=== PATIENT | female | born 1930 | race Caucasian/White ===

== ENCOUNTER 2018-12-06 14:33 | Inpatient (IN) ==
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
[2018-12-06 15:21] LABS: Bilirubin,Urine Negative (Negative); Blood,Urine Negative (Negative); Clarity,Urine Clear (Clear); Color,Urine Yellow (Yellow); Glucose,Urine (UA) Normal (Normal); Ketones,Urine Negative (Negative); Leukocyte Esterase,Urine Trace (Negative); Nitrite,Urine Negative (Negative); Protein,Urine Trace mg/dL (Neg-Trace); Specific Gravity,Urine 1.012 (1.010-1.025); Urobilinogen,Urine Normal (Normal)
[2018-12-06 15:23] LABS: Bacteria,Urine None Seen per hpf (None-Few); Hyaline Casts,Urine None Seen per lpf (None-Few); Squamous Epithelial Cell,Urine Many per lpf (None-Few); WBC,Urine 0-3 per hpf (0-3)
[2018-12-06 15:38] LABS: Basophils # 0.1 K/mcL (0.0-0.2); Basophils % 0.6 %; Eosinophils # 0.1 K/mcL (0.0-0.6); Eosinophils % 1.6 %; Hematocrit 35.6 % (35.3-44.9); Hemoglobin 11.5 g/dL (11.5-15.4); Immature Granulocytes % 0.4 % (0-4); Lymphocytes # 1.3 K/mcL (0.6-4.6); Mean Corpuscular HGB Conc 32.3 g/dL (31.6-35.5); Mean Corpuscular Hemoglobin 28.7 pg (28.0-33.3); Mean Corpuscular Volume 88.8 fL (83.0-100.0); Mean Platelet Volume 11.4 fL (9.4-12.4); Monocytes % 11.7 %; Neutrophils # 5.7 K/mcL (1.6-8.9); Platelet Count 148 K/mcL (140-400); Red Blood Count 4.01 M/mcL (3.82-4.97); Red Cell Distribution Width 15.1 % (11.5-14.5); Segmented Neutrophils % 69.7 %; White Blood Count 8.2 K/mcL (4.3-11.1)
[2018-12-06] MEDS ORDERED: Ipratropium/Albuterol Neb 3 ML IH ONE (15:50)
[2018-12-06] MEDS ORDERED: methylPREDNISolone 125 MG/2 ML VIAL IVP ONE (15:50)
[2018-12-06 16:06] LABS: VBG HCO3 24 mEq/L (21-27); VBG PCO2 33 mmHg (41-51); VBG PH 7.46 pH Units (7.32-7.42); VBG PO2 71 mmHg (25-50)
[2018-12-06 16:13] LABS: Albumin 3.6 g/dL (3.5-5.7); Bilirubin,Direct 0.2 mg/dL (0.0-0.2); Bilirubin,Indirect 0.4 mg/dL (0.0-1.2); Bilirubin,Total 0.6 mg/dL (0.3-1.0); Globulin 3.6 g/dL (2.4-3.5); Potassium 4.4 mEq/L (3.5-5.1); Total Protein 7.2 g/dL (6.4-8.9); Troponin I 0.03 ng/mL (< 0.04)
[2018-12-06] MEDS ORDERED: Azithromycin 500 MG in D5% in Water 250 ML IVPB ONE (16:40)
[2018-12-06] MEDS ORDERED: cefTRIAXone 1,000 MG in Water for inj. (sterile) 20 ML 10 ML IVP ONE (16:40)
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
[2018-12-06] MEDS ORDERED: Naloxone 0.4 MG/ML INJ IVP PRN (17:35)
[2018-12-06] MEDS ORDERED: Acetaminophen 325 MG TABLET PO PRN (17:35)
[2018-12-06] MEDS ORDERED: HydrOXYzine 100 MG/2 ML VIAL IM PRN (17:38)
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
[2018-12-06] MEDS ORDERED: Albuterol 2.5 MG/3 ML NEBULIZER IH PRN (18:20)
[2018-12-06] MEDS ORDERED: Dextrose Gel 15 GM/37.5 ML TUBE PO PRN ×2 (18:26)
[2018-12-06] MEDS ORDERED: D5% in Water 1,000 ML IVC PRN (18:26)
[2018-12-06] MEDS ORDERED: *HR* Dextrose 50 % in Water (Syg) 50 ML SYRINGE IVP PRN (18:26)
[2018-12-06] MEDS: Ipratropium/Albuterol Neb 3 ML IH SCH ×2 (20:12→23:15)
[2018-12-06] MEDS: Ondansetron ODT 4 MG TAB.RAPDIS SL SCH (22:02)
[2018-12-06] MEDS: Divalproex Sodium 125 MG CAPSULE PO SCH (22:23)
[2018-12-06] MEDS: *HR* OxyCODONE Immed Rel 5 MG TABLET PO SCH (22:25)
[2018-12-06] MEDS: hydrOXYzine pamoate 25 MG CAPSULE PO SCH (22:25)
[2018-12-06] MEDS: hydrALAZINE 10 MG TABLET PO SCH (22:25)
[2018-12-06] MEDS: Insulin LISPRO 300 UNITS/3 ML VIAL SQ SCH (22:30)
[2018-12-07] MEDS: Ondansetron ODT 4 MG TAB.RAPDIS SL SCH ×4 (00:14→18:32)
[2018-12-07] MEDS: Ipratropium/Albuterol Neb 3 ML IH SCH ×5 (04:08→19:44)
[2018-12-07] MEDS: *HR* Heparin 5,000 UNIT/ML VIAL SQ SCH ×2 (06:11→18:31)
[2018-12-07 06:55] LABS: Basophils % 0.4 %; Hematocrit 32.2 % (35.3-44.9); Hemoglobin 10.3 g/dL (11.5-15.4); Immature Granulocytes % 0.4 % (0-4); Lymphocytes # 0.7 K/mcL (0.6-4.6); Lymphocytes % 13.6 %; Mean Corpuscular Volume 87.5 fL (83.0-100.0); Mean Platelet Volume 11.1 fL (9.4-12.4); Monocytes # 0.1 K/mcL (0.0-1.3); Monocytes % 2.5 %; Platelet Count 145 K/mcL (140-400); Red Blood Count 3.68 M/mcL (3.82-4.97); Red Cell Distribution Width 15.2 % (11.5-14.5); Segmented Neutrophils % 83.1 %; White Blood Count 4.8 K/mcL (4.3-11.1)
[2018-12-07 07:13] LABS: Calcium 8.6 mg/dL (8.6-10.3); Potassium 4.2 mEq/L (3.5-5.1)
[2018-12-07] MEDS ORDERED: Azithromycin 500 MG in D5% in Water 250 ML IVPB SCH (09:00)
[2018-12-07] MEDS: Insulin LISPRO 300 UNITS/3 ML VIAL SQ SCH ×4 (09:02→22:34)
[2018-12-07] MEDS: hydrALAZINE 10 MG TABLET PO SCH ×2 (09:05→22:34)
[2018-12-07] MEDS: *HR* LORazepam 0.5 MG TABLET PO SCH (09:18)
[2018-12-07] MEDS: Cholecalciferol (D-3) 1,000 UNIT TABLET PO SCH (09:18)
[2018-12-07] MEDS: predniSONE 20 MG TABLET PO SCH (09:18)
[2018-12-07] MEDS: NIFEdipine XL (24 HR) 30 MG TAB.ER.24 PO SCH (09:18)
[2018-12-07] MEDS: hydrOXYzine pamoate 25 MG CAPSULE PO SCH ×2 (09:19→22:36)
[2018-12-07] MEDS: Aspirin Enteric Coated 81 MG Tablet PO SCH (09:19)
[2018-12-07] MEDS: cefTRIAXone 1,000 MG in Water for inj. (sterile) 20 ML 10 ML IVP SCH (09:19)
[2018-12-07] MEDS: Torsemide 20 MG TABLET PO SCH (09:19)
[2018-12-07] MEDS: *HR* OxyCODONE Immed Rel 5 MG TABLET PO SCH ×2 (09:20→22:35)
[2018-12-07] MEDS: Divalproex Sodium 125 MG CAPSULE PO SCH ×3 (09:22→22:36)
--- NOTE | 2018-12-07 13:22 | Internal Med Progress Note ---
Hospitalist Progress Note - Encounter Date of Encounter: 12/07/18 Time of Encounter: 08:20 - Subjective Interval History: patient was seen and examined at bedside. is Axox1 ( herself) not place or time. she denies fever, chils, N/v/D. is able to follow simple commands. would like to get out of bed. all questions answered. denies fever, chills, N/v/D. - Exam Vitals: Temp Pulse Resp BP Pulse Ox 97.4 F L 60 15 105/70 97 12/07/18 11:28 12/07/18 11:28 12/07/18 11:28 12/07/18 11:28 12/07/18 11:28 Exam: General: Patient is alert, no acute distress, oriented x 1 Head: atraumatic, normocephalic, ENT: Mucous membranes dry Eye: normal appearance, PERRL, no scleral icterus, no conjunctival injection Neck: normal inspection, trachea midline, full ROM, no carotid bruits Chest: normal inspection, symmetric chest rise Respiratory: Coarse breath sounds bilaterally; decreased breath sounds at bases bilat. no wheezing Cardiovascular: Regular rate and rhythm. s1 and s2 normal No clicks, rubs, gallops, or murmurs. No pedal edema Abdomen: Abdomen is soft, nontender. Bowel sounds are present Musculoskeletal: Spontaneously moving all extremities no edema Skin: warm, dry, intact. Neuro: Alert oriented x 1, speech is comprehendible, follows simple commands as she moves all extremities on command. sensation intact Psych: Patient's affect is normal - Assessment and Plan (1) Pneumonia Current Visit: Yes Status: Suspected Assessment and Plan: Chest x-ray shows possible left basal and right mid lung airspace opacities concerning for pneumonia/atelectasis. Patient denies any complaints. She does have dementia. procalcitonin pending continue IV abx urine antigens pending GRANITE INSTALLER consulted Follow culture results. urine antigens negative- azithromycin discontinued. Moderate risk for complications. (2) COPD exacerbation Current Visit: Yes Status: Acute Assessment and Plan: Patient presented with hypoxia per ED record and was reportedly having sats of 80% on arrival. Placed on nasal cannula. Started on she received Solu-Medrol in the ER. continue with burst of steroids for 5 days total Will continue steroids. Bronchodilators. (3) Acute on chronic diastolic CHF (congestive heart failure) Current Visit: Yes Status: Acute Assessment and Plan: CXR with vascular congestion. TTE ordered strict I/O continue torsemide and BB, ASA and statins. (4) Acute respiratory failure with hypoxia Current Visit: Yes Status: Acute Assessment and Plan: In the ER she was first noted to have sats of 80% on room air and was placed on oxygen and is presently on 3 L oxygen saturating at 97% continue with nasal cannula to keep sats >92% secondary to above management as above (5) Metabolic encephalopathy Current Visit: Yes Status: Acute Assessment and Plan: ?secondary to hypoxia on arrival, PNA, ruled out acute stroke Unknown baseline. Patient is oriented 1. Answering no to most questions however follows commands CT head: No acute intracranial abnormality. fall precautions, aspiration precaution Monitor vital signs. Monitor neuro status (6) CKD (chronic kidney disease) stage 4, GFR 15-29 ml/min Current Visit: Yes Status: Acute Assessment and Plan: CKD 4- creatinine currently at baseline as compared to labs in 2015 strict i/O will call family as her GFR is <15 now about her wishes for dialysis. renal US ordered will follow continue home medications ( on sodium bicarb) and watch renal functions. (7) Hypertension Current Visit: Yes Status: Chronic Assessment and Plan: Blood pressure is well controlled. Continue home medications (8) Dementia Current Visit: Yes Status: Suspected Assessment and Plan: Patient with history of dementia. Reported episodes of delirium at long term and agitation. Will monitor closely. Consider Haldol IM injection if patient develops episodes of agitation. (9) Counseling regarding goals of care Current Visit: Yes Status: Acute Assessment and Plan: tried to call emergency contact listed on file- [phone] hwoever the number is disconnected. nursing staff aware to try to find family for the patient in order to discuss goals of care. (10) DVT prophylaxis Current Visit: Yes Status: Acute Assessment and Plan: heparin sc - Time Spent with Patient Total time spent is greater than 50% in coordination of care (as documented) at patient's floor/unit and/or counseling patient: 25 - 35 minutes Plan of Care Discussed with: patient Internal Medicine: Result - Labs CBC & Chem 7: 12/07/18 06:17 12/07/18 06:17 Labs: Short CBC 12/06/18 12/07/18 Range/Units 15:26 06:17 WBC 8.2 4.8 (4.3-11.1) K/mcL Hgb 11.5 10.3 L (11.5-15.4) g/dL Hct 35.6 32.2 L (35.3-44.9) % Plt Count 148 145 (140-400) K/mcL Neutrophils # 5.7 4.0 (1.6-8.9) K/mcL BMP 12/06/18 12/07/18 15:26 06:17 Sodium 138 140 Potassium 4.4 4.2 Chloride 102 105 Carbon Dioxide 23 23 BUN 70 H 70 H Creatinine 4.26 H 4.07 H Glucose 116 H 146 H Calcium 9.0 8.6 Cardiac Enzymes 12/06/18 Range/Units 15:26 Troponin I 0.03 (< 0.04) ng/mL Liver Function 12/06/18 Range/Units 15:26 Total Bilirubin 0.6 (0.3-1.0) mg/dL Direct Bilirubin 0.2 (0.0-0.2) mg/dL AST 14 (13-39) Units/L ALT 7 (7-52) Units/L Alkaline Phosphatase 56 (34-104) Units/L Albumin 3.6 (3.5-5.7) g/dL Urine 12/06/18 Range/Units 15:09 Urine Color Yellow (Yellow) Urine Clarity Clear (Clear) Urine pH 6.0 (5.0-8.0) pH Units Ur Specific [place] 1.012 (1.010-1.025) Urine Protein Trace (Neg-Trace) mg/dL Urine Glucose (UA) Normal (Normal) mg/dL - Impressions Impressions Chest X-Ray 12/06/18 15:01 IMPRESSION: Small bilateral pleural effusions and patchy left basilar and right mid lung zone airspace opacities which may be on the basis of atelectasis and/or multifocal infectious/inflammatory infiltrates. Superimposed mild pulmonary vascular congestion. Mild degree of asymmetric pulmonary edema not excluded. Stable cardiomegaly. Stable prominence of mediastinum given differences in modality from prior CT chest 05/11/2015, and felt to correlate with thoracic aortic aneurysm and chronic dissection demonstrated on the prior remote CT chest. If there is clinical concern for acute aortic pathology, consider re-evaluation with CTA chest. D/ / 12/06/2018 16:11:53 Nathaniel Garcia MD / earnold Interpreting Provider: Nathaniel Garcia MD Head CT 12/06/18 15:03 IMPRESSION: No acute intracranial abnormality. D/ / Sven Duarte MD / Sven Duarte MD Interpreting Provider: Sven Duarte MD Consult Discharge Plan - Plan Referrals: NONE,PCP [Primary Care Provider] - (1) Pneumonia Qualifiers: Pneumonia type: due to unspecified organism Laterality: bilateral Lung lo cation: unspecified part of lung Qualified Code(s): J18.9 - Pneumonia, unspecified organism (7) Hypertension Qualifiers: Hypertension type: essential hypertension Qualified Code(s): I10 - Essential (primary) hypertension (8) Dementia Qualifiers: Dementia type: unspecified type Dementia behavioral disturbance: with behavioral disturbance Qualified Code(s): F03.91 - Unspecified dementia with behavioral disturbance
--- NOTE | 2018-12-07 16:42 | Electrocardiograph Report ---
[place] [id number] Test Date: 2018-12-06 Pat Name: Lida Walls Department: [id number] Room: 3A22 Gender: F Particle Board Supervisor: : [id number] Requested By: Marlen Jeronimo Order Number: [id number] Reading MD: Philipp Velasquez Measurements Intervals [place] Rate: 69 P: 32 NH: 163 QRS: -26 QRSD: 110 T: 113 QT: 446 QTc: 478 Interpretive Statements Sinus rhythm LVH with IVCD and secondary repol abnrm Electronically Signed On 12-07-2018 16:41:09 EDT by Philipp Velasquez
[2018-12-08] MEDS: Ipratropium/Albuterol Neb 3 ML IH SCH ×6 (00:10→23:18)
[2018-12-08] MEDS: Ondansetron ODT 4 MG TAB.RAPDIS SL SCH ×2 (00:39→05:59)
--- NOTE | 2018-12-08 03:12 | Event Note ---
Date of Encounter: 12/08/18 Time of Encounter: 00:22 Alerted by pts. nurse CLAIRE hO that the pt. was restless and taking her continuous pulse oximetry. 12.5 mg Benadryl IVP ordered to help calm the pt. Nurse instructed to continue monitoring the pt. closely. Alerted at 01:33 that the pt. had pulled out her IV access, was getting naked, and refused to wear her oxygen. Patient has been on 2-3 L all night and was admitted for altered mental status and hypoxia along with pneumonia. Patient would become aggressive with the nurse and slap her if she tried to place O2 on the patient. SpO2 was 80% at this time. Patient was agitated and aggressive w/nurse and myself and continued to refuse O2 w/SpO2 dropping further. I explained that if her SpO2 continued to drop she may require intubation to which she stated "no". Pt. is Full Code. D/t pts. age and current QT prolonging medications she had received this evening, decision made not to give Ativan or Haldol IM. Pt. refused anything oral. Decision made to restrain the pt. w/soft restraints on bilateral UEs for medical reasons d/t hypoxia and pts. disruption of medical treatment. Pt. was restrained and Oxymask placed on her. SpO2 increased to mid 90s. Sitter placed with patient. Nurse instructed to continue monitoring the pt. closely and alert me immediately of any adverse changes. Communication order placed to follow medical restraint protocol. Alerted by pts. nurse that the pt. continues to be agitated periodically. SpO2 90%. Will avoid sedating medications which will respiratorily depress the pt. further. Will continue to monitor pt., restraints, and respiratory status closely overnight.
[2018-12-08] MEDS: *HR* Heparin 5,000 UNIT/ML VIAL SQ SCH ×3 (05:59→21:23)
[2018-12-08 06:10] LABS: Calcium 8.5 mg/dL (8.6-10.3); Potassium 4.4 mEq/L (3.5-5.1)
--- NOTE | 2018-12-08 07:49 | Internal Med Progress Note ---
Hospitalist Progress Note - Encounter Date of Encounter: 12/08/18 Time of Encounter: 07:49 - Subjective Interval History: patient was seen ad examined ta bedside. unable to provide history as per nursing staff and documentation she was extremely combative overnight tried to call emergency contact listed on file- [phone] however the number is disconnected. called [facility] [phone]- and spoke to staff- gave me phone number for daughter [phone] Sharmaine Caldera as per nursing staff that her daughter does not visit her as she lives in [facility]. as per psych note from [place] - easily agitated with alot of activity, her behavior had worsened, was tearful, mood worse. depression and dementia with behavioral disturbance, Vistaril was added at that time without improvement. her ativan dose has been tapered in the past few months as [facility] is trying to decrease narcotic use. the nursing at the [place] reported that she has had this kind of behavior for a long time. - Exam Vitals: Temp Pulse Resp BP Pulse Ox 97.8 F 93 16 121/72 90 12/08/18 07:22 12/08/18 07:22 12/08/18 07:30 12/08/18 07:22 12/08/18 07:30 Exam: General: Patient is alert, no acute distress, oriented x 1 Head: atraumatic, normocephalic, ENT: Mucous membranes dry Eye: normal appearance, PERRL, no scleral icterus, no conjunctival injection Neck: normal inspection, trachea midline, full ROM, no carotid bruits Chest: normal inspection, symmetric chest rise Respiratory: Coarse breath sounds bilaterally; decreased breath sounds at bases bilat. no wheezing Cardiovascular: Regular rate and rhythm. s1 and s2 normal No clicks, rubs, gallops, or murmurs. No pedal edema Abdomen: Abdomen is soft, nontender. Bowel sounds are present Musculoskeletal: Spontaneously moving all extremities no edema Skin: warm, dry, intact. Neuro: Alert oriented x 1, speech is comprehendible, follows simple commands as she moves all extremities on command. sensation intact Psych: Patient's affect is normal - Assessment and Plan (1) Pneumonia Current Visit: Yes Status: Suspected Assessment and Plan: Chest x-ray shows possible left basal and right mid lung airspace opacities concerning for pneumonia/atelectasis. Patient denies any complaints. She does have dementia. procalcitonin pending continue IV abx urine antigens pending LIBRARY ATTENDANT consulted Follow culture results. urine antigens negative- azithromycin discontinued. Moderate risk for complications. (2) COPD exacerbation Current Visit: Yes Status: Acute Assessment and Plan: Patient presented with hypoxia per ED record and was reportedly having sats of 80% on arrival. Placed on nasal cannula with improvement of her saturation. Started on she received Solu-Medrol in the ER. continue with burst of steroids for 5 days total Bronchodilators. (3) Acute on chronic diastolic CHF (congestive heart failure) Current Visit: Yes Status: Acute Assessment and Plan: CXR with vascular congestion. TTE ordered strict I/O continue torsemide and BB, ASA and statins. (4) Acute respiratory failure with hypoxia Current Visit: Yes Status: Acute Assessment and Plan: In the ER she was first noted to have sats of 80% on room air and was placed on oxygen and is presently on 3 L oxygen saturating at 97% desaturated overnight and was agitated however not in any respiratory distress and is speaking/laying flat in bed without difficulty will get ABG continue oxygen via nasal cannula to keep sats >92% most likely secondary to above , management as above (5) Metabolic encephalopathy Current Visit: Yes Status: Acute Assessment and Plan: ?secondary to hypoxia on arrival, PNA, ruled out acute stroke Unknown baseline. Patient is oriented 1. Answering no to most questions however follows commands CT head: No acute intracranial abnormality. fall precautions, aspiration precaution Monitor vital signs. Monitor neuro status (6) CKD (chronic kidney disease) stage 4, GFR 15-29 ml/min Current Visit: Yes Status: Acute Assessment and Plan: CKD 4- creatinine currently at baseline as compared to labs in 2015 strict i/O will call family as her GFR is <15 now about her wishes for dialysis. renal US ordered will follow No hydronephrosis or shadowing renal pelvic stones. Overall increased echogenicity of the renal parenchyma, nonspecific finding suggesting medical renal disease. continue home medications ( on sodium bicarb) and watch renal functions. (7) Hypertension Current Visit: Yes Status: Chronic Assessment and Plan: Blood pressure is well controlled. Continue home medications (8) Dementia Current Visit: Yes Status: Suspected Assessment and Plan: Patient with history of dementia. Reported episodes of delirium at [facility] and agitation. on multiple medications and mood stabilizers. psych was consulted or medication reconciliation and recommendations Haldol 1 mg IM injection Q8H if patient develops episodes of agitation. (9) Counseling regarding goals of care Current Visit: Yes Status: Acute Assessment and Plan: tried to call emergency contact listed on file- [phone] however the number is disconnected. called [facility] [phone]- and spoke to staff- gave me phone number for daughter [phone] Sharmaine Caldera ( called left voicemail with call back number) as per nursing staff that her daughter does not visit her as she lives in [place]. as per psych note from [place] - easily agitated with alot of activity, her behavior had worsened, was tearful, mood worse. depression and dementia with behavioral disturbance, Vistaril was added at that time without improvement. her ativan dose has been tapered in the past few months as [facility] facility is trying to decrease narcotic use. nursing staff aware to try to find family for the patient in order to discuss goals of care. (10) Delirium Current Visit: Yes Status: Acute Assessment and Plan: continue with PRN haldol frequent redirection will follow psych recommendations. (11) DVT prophylaxis Current Visit: Yes Status: Acute Assessment and Plan: heparin sc - Time Spent with Patient Total time spent is greater than 50% in coordination of care (as documented) at patient's floor/unit and/or counseling patient: Internal Medicine: Result - Labs CBC & Chem 7: 12/07/18 06:17 12/08/18 05:35 Labs: BMP 12/08/18 05:35 Sodium 139 Potassium 4.4 Chloride 103 Carbon Dioxide 24 BUN 72 H Creatinine 4.39 H Glucose 111 H Calcium 8.5 L - Impressions Impressions Retroperitoneum Ultrasound 12/07/18 19:00 IMPRESSION: No hydronephrosis or shadowing renal pelvic stones. Overall increased echogenicity of the renal parenchyma, nonspecific finding suggesting medical renal disease. D/ / Pauline Coley Cha, MD / Pauline Coley Cha, MD Interpreting Provider: Pauline Coley Cha, MD Consult Discharge Plan - Plan Referrals: NONE,PCP [Primary Care Provider] - (1) Pneumonia Qualifiers: Pneumonia type: due to unspecified organism Laterality: bilateral Lung location: unspecified part of lung Qualified Code(s): J18.9 - Pneumonia, unspecified organism (7) Hypertension Qualifiers: Hypertension type: essential hypertension Qualified Code(s): I10 - Essential (primary) hypertension (8) Dementia Qualifiers: Dementia type: unspecified type Dementia behavioral disturbance: with behavioral disturbance Qualified Code(s): F03.91 - Unspecified dementia with behavioral disturbance
[2018-12-08] MEDS: Insulin LISPRO 300 UNITS/3 ML VIAL SQ SCH ×4 (08:22→19:31)
[2018-12-08] MEDS ORDERED: Haloperidol Lactate 5 MG/ML VIAL IM PRN (08:23)
[2018-12-08] MEDS ORDERED: MOM Conc 10 ML UD.LIQ PO PRN (08:45)
[2018-12-08] MEDS ORDERED: Mag Hydrox/Al Hydrox/Simeth 30 ML UDC PO PRN (08:45)
[2018-12-08 09:10] LABS: Estimated Average Glucose 114 mg/dl; Hemoglobin A1C 5.6 %
[2018-12-08] MEDS: *HR* LORazepam 0.5 MG TABLET PO SCH (09:38)
[2018-12-08] MEDS: NIFEdipine XL (24 HR) 30 MG TAB.ER.24 PO SCH (09:38)
[2018-12-08] MEDS: Torsemide 20 MG TABLET PO SCH (09:38)
[2018-12-08] MEDS: hydrALAZINE 10 MG TABLET PO SCH (09:38)
[2018-12-08] MEDS: Cholecalciferol (D-3) 1,000 UNIT TABLET PO SCH (09:39)
[2018-12-08] MEDS: Divalproex Sodium 125 MG CAPSULE PO SCH ×4 (09:39→21:23)
[2018-12-08] MEDS: Aspirin Enteric Coated 81 MG Tablet PO SCH (09:39)
[2018-12-08] MEDS: predniSONE 20 MG TABLET PO SCH (09:40)
[2018-12-08] MEDS: *HR* OxyCODONE Immed Rel 5 MG TABLET PO SCH ×2 (09:40→21:23)
[2018-12-08] MEDS: hydrOXYzine pamoate 25 MG CAPSULE PO SCH ×2 (09:40→21:24)
[2018-12-08] MEDS: cefTRIAXone 1,000 MG in Water for inj. (sterile) 20 ML 10 ML IVP SCH (09:41)
[2018-12-08] MEDS ORDERED: Ipratropium/Albuterol Neb 3 ML IH PRN (10:04)
[2018-12-08] MEDS ORDERED: CefTRIAXone 1,000 MG VIAL IM ONE (10:25)
[2018-12-08 15:15] LABS: ABG Base Excess 2 mEq/L (-2 to 3); ABG HCO3 26 mEq/L (21-27); ABG Oxygen Saturation 86 % (95-98); ABG PCO2 36 mmHg (35-45); ABG PH 7.46 pH Units (7.32-7.45); ABG PO2 48 mmHg (85-104); ABG TCO2 27 mEq/L (20-26)
[2018-12-08 15:21] LABS: ABG Base Excess 1 mEq/L (-2 to 3); ABG HCO3 25 mEq/L (21-27); ABG Oxygen Saturation 88 % (95-98); ABG PCO2 37 mmHg (35-45); ABG PH 7.44 pH Units (7.32-7.45); ABG PO2 52 mmHg (85-104); ABG TCO2 26 mEq/L (20-26)
[2018-12-08] MEDS ORDERED: Furosemide 20 MG/2 ML VIAL IVP ONE ×2 (15:27→16:18)
[2018-12-08] MEDS ORDERED: Furosemide 20 MG TABLET PO ONE (16:00)
[2018-12-08] MEDS: Furosemide 40 MG/4 ML VIAL IVP SCH (16:59)
[2018-12-08] MEDS ORDERED: *HR* Metoprolol 5 MG/5 ML VIAL IVP ONE ×2 (17:10→17:13)
[2018-12-08] MEDS ORDERED: Amiodarone Premix 360 MG/200 ML BAG IVC ONE (17:59)
[2018-12-08] MEDS ORDERED: *HR* Heparin 5,000 UNIT/ML VIAL IVP ONE (18:13)
[2018-12-08] MEDS ORDERED: *HR* Heparin 5,000 UNIT/ML VIAL IVP PRN ×2 (18:13)
[2018-12-08] MEDS ORDERED: Heparin 25,000 UNIT/250 ML D5W 25,000 UNIT/250 ML IV.SOLN IVC SCH (18:15)
--- NOTE | 2018-12-08 18:27 | Event Note ---
Date of Encounter: 12/08/18 Time of Encounter: 17:00 Informed by the nurse that patient's heart rate is 160 at 5 pm patient was seen and examiend at bedside at 505.. Patient was seen and examined at bedside. In no acute distress, speaking in full sentences when asked if she has any chest pain or palpitation she denies any symptoms. She does have dementia and is only alert and oriented to herself at baseline. Has been agitated all day and had refused medications and pull out her IV line. via signs reviewed HR 160 and BP 131/86 saturating 88 on high flow NAD speaks in full sentences has systolic murmur in the apex, irregularly irregular, s1 and s1 breath sounds decreased bilaterally, crackles in the posterior lung evans no wheezing moving all extremities +1 edema of the lower extremities ABG with high A-a gradient hypoxemia CXR with IMPRESSION: 1. Bilateral airspace opacities which may represent pulmonary edema or multifocal pneumonia, similar to prior examination. 2. Possible small bilateral pleural effusions. 3. Stable prominence of the superior mediastinum. TTE: Impressions: LVEF 65%. Normal LV chamber size, wall thickness and function. Severe left ventricular diastolic dysfunction. Atypical septal motion consistent with bundle branch block. Normal right ventricular structure and function. Severely dilated left atrium. Grossly, heavily calcified aortic valve leaflets. Mild-moderate aortic regurgitation. Mild-moderate aortic stenosis. Mean gradient 19 mmHg. Peak velocity 3.15 m/s. There appeared to be an eccentric mitral regurgitation jet, but it was no well evaluated. Mild-moderate tricuspid regurgitation. Moderate-severe pulmonary hypertension. Assessment and plan: EKG with Afib with RVR was give metoprolol 5 mg IV push x2 with improvement of HR, coreg missed dose was given CBC, CMP, magnesium and Po4 ordered was placed on bipap with improvement of saturation lasix 40 IV one dose was given BP trended down while on BIPAP cardiology consulted i spoke to manager camp transportation solutions manager who recommended to start the patient on amiodarone drip for HR control. she was started on heparin drip for Afib ( no history of bleeding, CT head was negative for any acute abnormalities) will transfer patient to step down i discussed patients status with daughter [phone] Sharmaine Caldera, she understands that her mothers condition is critical. she wishes her mother to remain DNR CCA DNI. i discussed that her prognosis is poor as she also has CKD4- 5 she understands however she would like to continue conservative management for now as her mother health has been deteriorating for years and she does not see meaningful life for her mother if aggressive measures are taken. will consult palliative care. will apply soft restraints as patient is agitated and combative and pulling off bipap and hitting staff continue to monitor vitals closely. will give night team check out to watch the patient closely.
[2018-12-08 18:52] LABS: Mean Corpuscular HGB Conc 32.4 g/dL (31.6-35.5); Mean Corpuscular Hemoglobin 29.1 pg (28.0-33.3); Mean Corpuscular Volume 89.9 fL (83.0-100.0); Mean Platelet Volume 11.7 fL (9.4-12.4); Platelet Count 160 K/mcL (140-400); Red Blood Count 3.78 M/mcL (3.82-4.97); Red Cell Distribution Width 15.7 % (11.5-14.5)
[2018-12-08 18:55] LABS: White Blood Count 12.5 K/mcL (4.3-11.1)
[2018-12-08 19:08] LABS: Albumin 3.2 g/dL (3.5-5.7); Albumin/Globulin Ratio 0.9 (1.1-2.2); Bilirubin,Total 0.5 mg/dL (0.3-1.0); Calcium 8.2 mg/dL (8.6-10.3); Globulin 3.4 g/dL (2.4-3.5); Magnesium 2.2 mg/dL (1.6-2.6); Phosphorous 4.9 mg/dL (2.7-4.5); Potassium 4.4 mEq/L (3.5-5.1); Total Protein 6.6 g/dL (6.4-8.9)
[2018-12-08 21:28] LABS: Hematocrit 34.3 % (35.3-44.9); Hemoglobin 10.8 g/dL (11.5-15.4); Mean Corpuscular HGB Conc 31.5 g/dL (31.6-35.5); Mean Corpuscular Hemoglobin 28.2 pg (28.0-33.3); Mean Corpuscular Volume 89.6 fL (83.0-100.0); Mean Platelet Volume 10.9 fL (9.4-12.4); Platelet Count 154 K/mcL (140-400); Red Blood Count 3.83 M/mcL (3.82-4.97); Red Cell Distribution Width 15.9 % (11.5-14.5); White Blood Count 11.6 K/mcL (4.3-11.1)
[2018-12-08 21:40] LABS: Heparin anti-factor XA UFH 0.06 IU/mL (0.30-0.70)
[2018-12-08 21:41] LABS: INR 1.3; Prothrombin Time 14.3 Seconds (9.4-12.1)
[2018-12-09] MEDS ORDERED: Amiodarone Premix 360 MG/200 ML BAG IVC SCH
[2018-12-09] MEDS: Ipratropium/Albuterol Neb 3 ML IH SCH ×6 (04:06→23:42)
[2018-12-09] MEDS: *HR* Heparin 5,000 UNIT/ML VIAL SQ SCH ×3 (05:02→21:22)
[2018-12-09 06:08] LABS: Hematocrit 33.7 % (35.3-44.9); Hemoglobin 10.5 g/dL (11.5-15.4); Mean Corpuscular HGB Conc 31.2 g/dL (31.6-35.5); Mean Corpuscular Hemoglobin 28.3 pg (28.0-33.3); Mean Corpuscular Volume 90.8 fL (83.0-100.0); Mean Platelet Volume 11.1 fL (9.4-12.4); Platelet Count 135 K/mcL (140-400); Red Blood Count 3.71 M/mcL (3.82-4.97); Red Cell Distribution Width 15.9 % (11.5-14.5); White Blood Count 8.8 K/mcL (4.3-11.1)
[2018-12-09 06:24] LABS: Calcium 8.2 mg/dL (8.6-10.3); Potassium 5.4 mEq/L (3.5-5.1)
--- NOTE | 2018-12-09 08:12 | Internal Med Progress Note ---
Hospitalist Progress Note - Encounter Date of Encounter: 12/09/18 Time of Encounter: 08:00 - Subjective Interval History: beckie was seen ad examined at bedside. has no complaints. reports that she is feeling "good" when asked if she has chest pain or feels palpitations she reports no. requesting water. has no other complaints. - Exam Vitals: Temp Pulse Resp BP Pulse Ox 97.8 F 64 12 116/64 98 12/09/18 07:29 12/09/18 07:55 12/09/18 07:33 12/09/18 07:55 12/09/18 07:33 Exam: General: Patient is alert, no acute distress, oriented x 1, looks ill, follows commands Head: atraumatic, normocephalic, ENT: Mucous membranes dry Chest: normal inspection, symmetric chest rise, has deformity of the left anterior chest Respiratory: Coarse breath sounds bilaterally; decreased breath sounds at bases bilat. no wheezing Cardiovascular: Regular rate and rhythm. s1 and s2 normal has systoic murmur in the apex and systolic murmur in the right second intercoastal space. +1 edema of bilateral lower extremities Abdomen: Abdomen is soft, nontender. Bowel sounds are present Musculoskeletal: Spontaneously moving all extremities , no calf discoloration or tenderness. Skin: warm, dry, intact. has multiple ecchymosis of the bilateral upper extremities. Neuro: Alert oriented x 1, speech is comprehendible, follows simple commands as she moves all extremities on command. sensation intact Psych: Patient's affect is normal - Assessment and Plan (1) Acute on chronic diastolic CHF (congestive heart failure) Current Visit: Yes Status: Acute Assessment and Plan: CXR with vascular congestion. TTE with EF of 65% and severe diastolic dysfunction. strict I/O started on low dose metoprolol as her blood pressure trended down on coreg. nephrology consulted for help with diuresing the patient. kemp was inserted for strict i/O daily weights LVEF 65%. Normal LV chamber size, wall thickness and function. Severe left ventricular diastolic dysfunction. Atypical septal motion consistent with bundle branch block. Normal right ventricular structure and function. Severely dilated left atrium. Grossly, heavily calcified aortic valve leaflets. Mild-moderate aortic regurgitation. Mild-moderate aortic stenosis. Mean gradient 19 mmHg. Peak velocity 3.15 m/s. There appeared to be an eccentric mitral regurgitation jet, but it was no well evaluated. Mild-moderate tricuspid regurgitation. Moderate-severe pulmonary hypertension. (2) Acute respiratory failure with hypoxia Current Visit: Yes Status: Acute Assessment and Plan: In the ER she was first noted to have sats of 80% on room air and was placed on oxygen and is presently on 3 L oxygen saturating at 97% desaturated on 12/08 was placed on Bipap with improvement of her respiratory status - transitioned to high flow nasal cannula CXR with congestion ABG with High A-a gradient hypoxecmia pulmonology consulted bipap as needed for respiratory distress continue with Duo-nebs Doubt PE as oxygenation improved with bipap and lasix overnight and TTE with RV dysfunction. (3) Atrial fibrillation Current Visit: Yes Status: Acute Assessment and Plan: new onset AFIB with RVR most likely secondary to acute on chronic diastolic HF was started on amiodarone drip - converted to sinus as BP is more stable will start her on metoprolol 12.5 mg BID CHADs VASC elevated - will discuss Anticoagulation with daughter and cardiology as she is likely a poor candidate ( non-compliant, has aneurysm) cardiology was consulted will follow recs. (4) Pulmonary hypertension Current Visit: Yes Status: Acute Assessment and Plan: moderate to severe pulm HTN as per TTE on 12/08. as compared to TTE on 06/2018 new pulm HTN, normal RV function. 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 However involvement of the ascending aorta and exact origination is difficult to assess given lack of intravenous contrast. Dissection flap extends to the upper abdominal aorta. 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 The degree of aneurysmal dilatation along the distal aortic arch has increased slightly, measuring up to 5.3 cm in maximum dimension, previously 5 cm. No evidence of an acute intramural hematoma. Limited evaluation of the aortic root due to motion artifact. (6) COPD exacerbation Current Visit: Yes Status: Acute Assessment and Plan: Patient presented with hypoxia per ED record and was reportedly having sats of 80% on arrival. continue with BIPAP PRN and high flow nasal cannula - taper off he received Solu-Medrol in the ER. continue with burst of steroids ( prednisone) for 5 days total Bronchodilators. (7) Pneumonia Current Visit: Yes Status: Suspected Assessment and Plan: Chest x-ray shows possible left basal and right mid lung airspace opacities concerning for pneumonia/atelectasis. Patient denies any complaints. She does have dementia. doubt PNA and most likely pulmonary edema procalcitonin negative on omnicef for UTI urine antigens negative EDUCATIONAL PROGRAMMING DIRECTOR consulted (8) Metabolic encephalopathy Current Visit: Yes Status: Acute Assessment and Plan: ?secondary to hypoxia on arrival, PNA and UTI ruled out acute stroke Patient is oriented 1. Answering no to most questions however follows commands discussed with NH and this appears to be her baseline. she has bursts of agitation/crying as per the NH CT head: No acute intracranial abnormality. fall precautions, aspiration precaution Monitor vital signs. Monitor neuro status (9) CKD (chronic kidney disease) stage 4, GFR 15-29 ml/min Current Visit: Yes Status: Acute Assessment and Plan: CKD 4- creatinine currently at baseline as compared to labs in 2015 Disucssed with half-way and it has bee documented that she has CKD4. Creatinine trended up to 4.8 over night as she was hypotensive ( from Afib with RVR) and also in acute on chronic diastolic HF strict i/O - minimal out put from kemp discussed with daughter and she declined dialysis renal US on 12/07- No hydronephrosis or shadowing renal pelvic stones. Overall increased echogenicity of the renal parenchyma, nonspecific finding suggesting medical renal disease. continue sodium bicarb nephrology consulted ( to help with diuresing and renal functions) will follow recommendations. (10) Hypertension Current Visit: Yes Status: Chronic Assessment and Plan: hold home medications as hse became hypotensive on 12/08. continue to monitor BP. (11) Dementia Current Visit: Yes Status: Suspected Assessment and Plan: Patient with history of dementia and behavioral disturbances and mood disorder along with depression. Reported episodes of delirium at half-way and agitation. on multiple medications and mood stabilizers. psych was consulted or medication reconciliation and recommendations Haldol 1 mg IM injection Q8H if patient develops episodes of agitation ( watch QT) discussed possibility of transferring her to geriatric Psych facility once medically stable and daughter is in agreement. as per psych note from ID - easily agitated with alot of activity, her behavior had worsened, was tearful, mood worse. depression and dementia with behavioral disturbance, Vistaril was added at that time without improvement. her ativan dose has been tapered in the past few months as the facility is trying to decrease narcotic use. (12) Counseling regarding goals of care Current Visit: Yes Status: Acute Assessment and Plan: tried to call emergency contact listed on file- [phone] however the number is disconnected. called [facility] [phone]- and spoke to staff- gave me phone number for daughter [phone] Sharmaine Arreola ( called left voicemail with call back number) as per nursing staff that her daughter does not visit her as she lives in [place]. i called Sharmaine arreola on 12/07 -she understands that her mothers condition is critical. she wishes her mother to remain DNR CCA DNI. i discussed that her prognosis is poor as she also has she understands however she would like to continue conservative management for now as her mother health has been deter iorating for years and she does not see meaningful life for her mother if aggressive measures are taken. she declined dialysis. she reported that her mother told her 5 years ago when she was hospitalized that she wanted to pass away naturally. as per daughter she is the only living relative her siblings ( two sisters in early and her father in the s) will consult palliative care. prognosis is extremely poor as she has thoracic aorta aneurysm, CKD4, mod-severe pulm HTN, acute on chronic diastolic HF (13) Delirium Current Visit: Yes Status: Acute Assessment and Plan: continue with PRN haldol frequent redirection will follow psych recommendations. (14) UTI (urinary tract infection) Current Visit: No Status: Acute Assessment and Plan: on strep agalactiae continue with omnicef follow cultures for sensitivity. (15) DVT prophylaxis Current Visit: Yes Status: Acute Assessment and Plan: heparin sc - Time Spent with Patient Total time spent is greater than 50% in coordination of care (as documented) at patient's floor/unit and/or counseling patient: Internal Medicine: Result - Labs CBC & Chem 7: 12/09/18 05:54 06/07/19 05:54 Labs: Short CBC 12/08/18 12/08/18 12/09/18 Range/Units 16:58 21:06 05:54 WBC 12.5 H D 11.6 H 8.8 (4.3-11.1) K/mcL Hgb 11.0 L 10.8 L 10.5 L (11.5-15.4) g/dL Hct 34.0 L 34.3 L 33.7 L (35.3-44.9) % Plt Count 160 154 135 L (140-400) K/mcL BMP 12/08/18 12/09/18 16:58 05:54 Sodium 140 140 Potassium 4.4 5.4 H Chloride 105 106 Carbon Dioxide 21 L 20 L BUN 71 H 84 H Creatinine 4.05 H 4.83 H Glucose 140 H 116 H Calcium 8.2 L 8.2 L Liver Function 12/08/18 Range/Units 16:58 Total Bilirubin 0.5 (0.3-1.0) mg/dL AST 14 (13-39) Units/L ALT 7 (7-52) Units/L Alkaline Phosphatase 47 (34-104) Units/L Albumin 3.2 L (3.5-5.7) g/dL - ABG Interpretation ABG results: ABG ABG pH 7.44 pH Units (7.32-7.45) 12/08/18 15:18 ABG pCO2 37 mmHg (35-45) 12/08/18 15:18 ABG pO2 52 mmHg (85-104) L 12/08/18 15:18 ABG O2 Saturation 88 % (95-98) L 12/08/18 15:18 PT/INR, D-dimer PT 14.3 Seconds (9.4-12.1) H 12/08/18 21:06 - Impressions Impressions Echocardiogram 12/07/18 13:38 Impressions: LVEF 65%. Normal LV chamber size, wall thickness and function. Severe left ventricular diastolic dysfunction. Atypical septal motion consistent with bundle branch block. Normal right ventricular structure and function. Severely dilated left atrium. Grossly, heavily calcified aortic valve leaflets. Mild-moderate aortic regurgitation. Mild-moderate aortic stenosis. Mean gradient 19 mmHg. Peak velocity 3.15 m/s. There appeared to be an eccentric mitral regurgitation jet, but it was no well evaluated. Mild-moderate tricuspid regurgitation. Moderate-severe pulmonary hypertension. Findings: Study Quality * Technically sub-optimal due to poor echocardiographic windows. ECG Findings * Sinus rhythm with BBB. Left Ventricle * LVEF 65%. * Normal LV chamber size, wall thickness and function. * Severe left ventricular diastolic dysfunction. * Atypical septal motion consistent with bundle branch block. Right Ventricle * Normal right ventricular structure and function. Left Atrium * Severely dilated left atrium. Right Atrium * Normal right atrial size. Interatrial Septum * No evidence of PFO by color Doppler. Aortic Valve * Aortic valve not well visualized. Unable to determine the number of leaflets. * Grossly, heavily calcified aortic valve leaflets. * Mild-moderate aortic regurgitation. * Mild-moderate aortic stenosis. Mean gradient 19 mmHg. Mitral Valve * Mild mitral annular calcification. * There appeared to be an eccentric mitral regurgitation jet, but it was no well evaluated. * No mitral stenosis. Tricuspid Valve * Normal tricuspid valve structure. * Mild-moderate tricuspid regurgitation. * Moderate-severe pulmonary hypertension. Pulmonic Valve * Pulmonic valve is not well visualized. * No pulmonic regurgitation. Aorta * Normally sized aortic root. Pericardium * There is a trivial pericardial effusion present. IVC * Normal IVC dimensions and inspiratory collapse. Pulmonary Artery * Pulmonary artery not well visualized. Chest X-Ray 12/08/18 15:25 IMPRESSION: 1. Bilateral airspace opacities which may represent pulmonary edema or multifocal pneumonia, similar to prior examination. 2. Possible small bilateral pleural effusions. 3. Stable prominence of the superior mediastinum. 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 The degree of aneurysmal dilatation along the distal aortic arch has increased slightly, measuring up to 5.3 cm in maximum dimension, previously 5 cm. No evidence of an acute intramural hematoma. Limited evaluation of the aortic root due to motion artifact. Stable cardiomegaly with heavy multivessel coronary calcifications. Heavy aortic valvular calcifications may be seen with aortic stenosis. Correlate with auscultation. Features of heart failure, including bilateral pleural effusions with probable asymmetric pulmonary edema. Correlate for any clinical signs of infection. D/ / 12/08/2018 22:12:57 Jose C Huston / kenny Interpreting Provider: Jose C Huston Consult Discharge Plan - Plan Referrals: NONE,PCP [Primary Care Provider] - (3) Atrial fibrillation Qualifiers: Atrial fibrillation type: unspecified Qualified Code(s): I48.91 - Unspecified atrial fibrillation (5) Thoracic aortic aneurysm Qualifiers: Presence of rupture: ruptured Qualified Code(s): I71.1 - Thoracic aortic aneurysm, ruptured (7) Pneumonia Qualifiers: Pneumonia type: due to unspecified organism Laterality: bilateral Lung locat ion: unspecified part of lung Qualified Code(s): J18.9 - Pneumonia, unspecified organism (10) Hypertension Qualifiers: Hypertension type: essential hypertension Qualified Code(s): I10 - Essential (primary) hypertension (11) Dementia Qualifiers: Dementia type: unspecified type Dementia behavioral disturbance: with behavioral disturbance Qualified Code(s): F03.91 - Unspecified dementia with behavioral disturbance (14) UTI (urinary tract infection) Qualifiers: Urinary tract infection type: site unspecified Hematuria presence: without hematuria Qualified Code(s): N39.0 - Urinary tract infection, site not specified
[2018-12-09] MEDS: hydrOXYzine pamoate 25 MG CAPSULE PO SCH ×2 (08:14→21:22)
[2018-12-09] MEDS: Furosemide 40 MG/4 ML VIAL IVP SCH ×2 (08:14→18:04)
[2018-12-09] MEDS: *HR* OxyCODONE Immed Rel 5 MG TABLET PO SCH ×2 (08:14→21:22)
[2018-12-09] MEDS: predniSONE 20 MG TABLET PO SCH (08:14)
[2018-12-09] MEDS: Cefdinir 300 MG CAPSULE PO SCH (08:14)
[2018-12-09] MEDS: Insulin LISPRO 300 UNITS/3 ML VIAL SQ SCH ×4 (08:15→21:22)
[2018-12-09] MEDS: Cholecalciferol (D-3) 1,000 UNIT TABLET PO SCH (08:15)
[2018-12-09] MEDS: Aspirin Enteric Coated 81 MG Tablet PO SCH (08:15)
[2018-12-09] MEDS: Divalproex Sodium 125 MG CAPSULE PO SCH ×3 (08:15→21:21)
[2018-12-09] MEDS: *HR* LORazepam 0.5 MG TABLET PO SCH (08:15)
--- NOTE | 2018-12-09 08:19 | Pulmonology Consult Note ---
Date of Encounter: 12/09/18 Time of Encounter: 09:48 Assessment and Plan (1) Acute respiratory failure Current Visit: No Status: Acute This appears to be multifactorial and is secondary to decompensated heart failure as well as suspected pneumonia. Patient has been requiring noninvasive ventilation but has been weaned down to nasal cannula O2 recommend of continuation of BiPAP at night currently and continue supplemental oxygen to keep saturation greater than 88%. We will be helpful to get her out of bed sitting to the chair if she is able to from a standpoint of mental status and hemodynamics at some point today. Qualifiers: Respiratory failure complication: hypoxia Qualified Code(s): J96.01 - Acute respiratory failure with hypoxia (2) Encephalopathy acute Current Visit: Yes Status: Acute Were probably more appropriately term to acute delirium which she is a high risk for because of acute illness including infection and hypoxia patient appears to be calm when I am in the room but per nursing staff has had periods of intense agitation requiring a sitter. I notice that Ativan has been scheduled this can oftentimes be associated with paradoxical hyperactive delirium in elderly populations and consider different agent additionally IV pushes of her haloperidol can also be dangerous in this group. There is no currently approved strategy for treatment of delirium from a medication standpoint however focus on tenriism of sleep-wake cycle. avoid sensory deprivation, and avoid [employer] de pressant medications as able can be quite helpful. (3) Acute kidney injury (nontraumatic) Current Visit: No Status: Acute Nephrology following (4) Acute exacerbation of CHF (congestive heart failure) Current Visit: No Status: Acute Difficult situation with her chronic kidney disease of optimizing diuretic regimen nephrology has been consulted and I will defer to them for appropriate strategy patient's creatinine now is nearly 5 and GFR is less than 20 in the usual's circumstances this would be consideration for dialysis however with her underlying medical comorbidities and overall poor prognosis this may not be the most appropriate strategy current CODE STATUS is DNAR/DNI. Blood pressure is well-controlled heart rate is better controlled now on amiodarone. Qualifiers: Heart failure type: unspecified Qualified Code(s): I50.9 - Heart failure, unspecified (5) Multifocal pneumonia Current Visit: Yes Status: Acute Leukocytosis with borderline to calcitonin she is on empiric broad-spectrum antibiotics for hospital associated organisms which is reasonable I suspect that they can be de-escalated her stopped in the next 24 hours as her condition mages is likely be secondary to CHF as opposed to infectious process. (6) Dementia Current Visit: Yes Status: Suspected Management per primary team Very much for this consultation please call with any questions it appears that patient's clinical course has stabilized over the last 12 hours and with her underlying goals of care being clearly outlined that is without any heroic interventions I feel the current strategy being employed in the stepdown is adequate if further questions exists please feel free to call me otherwise I will follow peripherally Do not hesitate to call me with any questions or concerns Víctor Cristobaldonny [phone] Qualifiers: Dementia type: unspecified type Dementia behavioral disturbance: with behavioral disturbance Qualified Code(s): F03.91 - Unspecified dementia with behavioral disturbance History of Present Illness Consult date: 12/09/18 Requesting physician: Afia Cbarera Reason for consult: pneumonia Chief complaint: Confusion History of present illness: Lili balderrama is a 88-year-old woman with an extensive past medical history including advanced dementia and lives in a nursing facility for this. She also has a history of thoracic aortic aneurysm coronary artery disease CHF chronic kidney disease and COPD. [facility] found to have worsening respiratory failure complicated by A. fib with RVR and evidence of volume overload. There is also evidence of pneumonia on imaging and patient presented with leukocytosis. Pulmonary was consulted for optimization of respiratory status. Unfortunately all history was obtained from the medical record as patient is unable to provide reliable answers to my questions because of her underlying dementia and there is no family present in the room I did review the ED and hospitalist notes and spoke directly with the nursing staff. Patient had been requiring BiPAP over more so the day yesterday but this has been weaned down to nasal cannula O2 and appears comfortable when I enter the ro om. When I asked her she is doing she says she is feeling okay she denied any chest pain or nausea she was unable to provide any other answers to my questions when asked where she was she told me that in no she did not know where she lived Past Med Surg Social Fam HX - Past Medical History Medical history: CHF, COPD, CVA, dementia, diabetes, hypertension, renal disease, other Additional medical history: respiratory failure, b/l lymphedema, dissection of thoracic aorta, hyperkalemia, uti Psychiatric history: anxiety, depression, other - Past Surgical History Surgical History: other Additional surgical history: unable to obtain at this time. - Social History Smoking Status: Never smoker Smokeless Tobacco Status: No Alcohol use: none Drug use: none Medications and Allergies Acetaminophen [Non-Aspirin] 650 mg PO Q4H PRN 12/06/18 [History] Aspirin [Lo-Dose Aspirin EC] 81 mg PO DAILY 12/06/18 [History] Atorvastatin [Lipitor] 40 mg PO HS 12/06/18 [History] Calcium Carbonate/Vitamin D3 [Calcium 600 + Vit D Tablet] 1 each PO DAILY 12/06/18 [History] Carvedilol [Coreg] 25 mg PO DAILY 12/06/18 [History] Dextromethorphan HBr/Quinidine [Nuedexta 20-10 mg Capsule] 1 each PO BID 12/06/18 [History] Divalproex Sodium [Depakote] 125 mg PO TID 12/06/18 [History] Docusate Sodium [Dok] 100 mg PO BID 12/06/18 [History] Haloperidol Lactate [Haldol] 5 mg IJ Q8HR PRN 12/06/18 [History] LORazepam [Ativan] 0.5 mg PO DAILY 12/06/18 [History] Mag Hydrox/Aluminum Hyd/Simeth [Cvs Antacid Plus Anti-Gas Liq] 30 ml PO Q6H PRN 12/06/18 [History] Magnesium Hydroxide [Milk of Magnesia] 30 ml PO DAILY PRN 12/06/18 [History] NIFEdipine [Nifedipine ER] 90 mg PO DAILY 12/06/18 [History] Ondansetron ODT [Zofran ODT] 4 mg SL Q6HR PRN 12/06/18 [History] Oxycodone HCl [Roxybond] 5 mg PO BID 12/06/18 [History] Sertraline [Zoloft] 25 mg PO DAILY 12/06/18 [History] Sertraline [Zoloft] 50 mg PO DAILY 12/06/18 [History] Sodium Bicarbonate 650 mg PO TIDAC 12/06/18 [History] Torsemide [Demadex] 40 mg PO DAILY 12/06/18 [History] hydrALAZINE [HydrALAZINE] 10 mg PO BID 12/06/18 [History] hydrOXYzine HCl [Hydroxyzine HCl] 12.5 mg IM Q8H PRN 12/06/18 [History] hydrOXYzine HCl [Hydroxyzine HCl] 25 mg PO BID 12/06/18 [History] Allergy/AdvReac Type Severity Reaction Status Date / Time No Known Allergies Allergy Verified 12/06/18 14:54 All Systems: The remainder of the systems were reviewed and are negative Physical Examination Vital Signs: Vital Signs, Last 4 Hours Temp Pulse Resp BP Pulse Ox 12/09/18 07:55 64 116/64 12/09/18 07:33 12 98 12/09/18 07:29 97.8 F 12/09/18 07:05 96.9 F L 53 12 103/87 97 12/09/18 05:57 49 93/55 12/09/18 04:31 97.5 F L 92 15 86/65 96 General appearance: no acute distress Eyes: nonicteric ENT: oropharynx dry Neck: supple Effort: normal Auscultation: bilateral: rhonchi Cardiovascular: regular rate and rhythm Gastrointestinal: normoactive bowel sounds, soft, non-tender Integumentary: normal Extremities: pink and warm, no ischemia or petechiae, edema (Bilateral pitting edema noted) Musculoskeletal: no deformities non-focal exam, pupils equal and round mood appropriate Results - Laboratory Findings CBC and BMP: 12/09/18 05:54 12/09/18 05:54 ABG ABG pH 7.44 pH Units (7.32-7.45) 12/08/18 15:18 ABG pCO2 37 mmHg (35-45) 12/08/18 15:18 ABG pO2 52 mmHg (85-104) L 12/08/18 15:18 ABG O2 Saturation 88 % (95-98) L 12/08/18 15:18 PT/INR, D-dimer PT 14.3 Seconds (9.4-12.1) H 12/08/18 21:06 Abnormal lab findings: Abnormal lab results WBC 11.6 K/mcL (4.3-11.1) H 12/08/18 21:06 RBC 3.71 M/mcL (3.82-4.97) L 12/09/18 05:54 Hgb 10.5 g/dL (11.5-15.4) L 12/09/18 05:54 Hct 33.7 % (35.3-44.9) L 12/09/18 05:54 MCHC 31.2 g/dL (31.6-35.5) L 12/09/18 05:54 RDW 15.9 % (11.5-14.5) H 12/09/18 05:54 Plt Count 135 K/mcL (140-400) L 12/09/18 05:54 PT 14.3 Seconds (9.4-12.1) H 12/08/18 21:06 Heparin Anti-Xa, Unfract 0.06 IU/mL (0.30-0.70) L 12/08/18 21:06 ABG pH 7.46 pH Units (7.32-7.45) H 12/08/18 15:09 ABG pO2 52 mmHg (85-104) L 12/08/18 15:18 ABG Total CO2 27 mEq/L (20-26) H 12/08/18 15:09 ABG O2 Saturation 88 % (95-98) L 12/08/18 15:18 VBG pH 7.46 pH Units (7.32-7.42) H 12/06/18 16:03 VBG pCO2 33 mmHg (41-51) L 12/06/18 16:03 VBG pO2 71 mmHg (25-50) H 12/06/18 16:03 Potassium 5.4 mEq/L (3.5-5.1) H 12/09/18 05:54 Carbon Dioxide 20 mEq/L (23-29) L 12/09/18 05:54 BUN 84 mg/dL (8-23) H 12/09/18 05:54 4.83 mg/dL (0.60-1.20) H 12/09/18 05:54 Est GFR ( Amer) 10 (> 60) L 12/09/18 05:54 Est GFR (Non-Af Amer) 9 (> 60) L 12/09/18 05:54 Glucose 116 mg/dL (70-105) H 12/09/18 05:54 POC Glucose 148 mg/dL (70-99) H 12/08/18 19:04 316 (280-300) H 12/09/18 05:54 Calcium 8.2 mg/dL (8.6-10.3) L 12/09/18 05:54 Phosphorus 4.9 mg/dL (2.7-4.5) H 12/08/18 16:58 3.2 g/dL (3.5-5.7) L 12/08/18 16:58 3.6 g/dL (2.4-3.5) H 12/06/18 15:26 0.9 (1.1-2.2) L 12/08/18 16:58 Ur Leukocyte Esterase Trace (Negative) H 12/06/18 15:09 3-5 per hpf (0-3) H 12/06/18 15:09 Ur Squamous Epith Cells Many per lpf (None-Few) H 12/06/18 15:09 Ur Culture Indicated? YES (NO) A 12/06/18 15:09 - Microbiology Findings Microbiology Findings: Microbiology, Last 48 Hours 12/06/18 15:09 Urine Culture - Final Urine,Catheterized (Straight) Strep agalactiae - (Group B) 12/06/18 15:09 Legionella Antigen - Final Urine,Clean Catch Streptococcus pneumoniae Antigen (M - Final - Diagnostic Findings Chest x-ray: report reviewed, image reviewed CT scan - chest: report reviewed, image reviewed - Clinical Findings Intake & Output: Intake & Output 12/08/18 12/09/18 12/09/18 23:59 07:59 15:59 Intake Total 100 / 160 265 / 265 Output Total 375 / 375 50 / 50 Balance -275 / -215 215 / 215 Weight 61.9 kg Consult Discharge Plan - Plan Referrals: NONE,PCP [Primary Care Provider] - (Patient is from [facility] no PCP appointment needed)
--- NOTE | 2018-12-09 10:14 | Cardiology Consult Note ---
<Delicia Contreras Naga - Last Filed: 12/09/18 10:31> Date of Encounter: 12/09/18 Time of Encounter: 10:15 Assessment and Plan (1) Atrial fibrillation Current Visit: Yes Status: Acute Newly discovered atrial fibrillation in the setting of worsening renal function and PNA. Chronicity unclear. Amiodarone gtt started on 12/08/18 PM; patient has since converted to NSR and gtt is off. 4.9 second conversion pause noted this AM. Previously on 25 mg BID of Coreg; agree with low dose Metoprolol. Unfortunately not a candidate for AC due to hx of chronic aortic dissection. Most recent CT of chest demonstrates stable type B dissection with slight in crease. Patient is DNRCC-DNI, family only wishes for conservative medical therapy. No further inpt recommendations, Cardiology will sign-off. Qualifiers: Atrial fibrillation type: paroxysmal Qualified Code(s): I48.0 - Paroxysmal atrial fibrillation (2) CHF (congestive heart failure) Current Visit: Yes Status: Acute HFpEF with severe diastolic CHF. Poor functional status, resides at SNF with dementia. Diuresis difficult given worsening CKD, will defer to Nephrology team who is following. Clinically appears euvolemic upon exam and is resting comfortably in bed. Continue BB. Patient is DNRCC-DNI, family only wishes for conservative medical therapies. Strict I&Os, daily weights, Na/fluid restriction diet. Qualifiers: Heart failure type: diastolic Heart failure chronicity: acute on chronic Qualified Code(s): I50.33 - Acute on chronic diastolic (congestive) heart failure Discussion w patient/family: The assessment and plan as outlined above was discussed with the patient and/or family members who expressed understanding and agreement. All questions were answered. Thank you for involving us in the care of your patient. Please call with any questions. The patient will be discussed and reviewed with Dr. Velasquez, changes to be made accordingly. History of Present Illness Consult date: 12/09/18 Requesting physician: Afia Cabrera Consult reason: Afib, dCHF Chief complaint: AMS History of present illness: Ms. Walls is a 88 year old female with PMHx significant of dementia, COPD, CKD IV, HFpEF, and chronic thoracic aneurysm with dissection in 2014 (not operative candidate) who presented from SNF due to worsening mental status and was combative with another SNF resident. Upon arrival to ED she was found to be hypoxic with SP02 of 80% and to have worsening renal function. Imagining d emonstrated pulmonary edema vs multifocal edema. Please note PMH and HPI obtained from H&P/ED record as patient is only alert to self, 1:1 sitter at beside. Cardiology consulted for suspected new onset atrial fibrillation, she was given Amiodarone IV gtt and has since converted by to NSR. She is not a candidate for anticoagulation given chronic aortic dissection. Past Med Surg Social Fam HX - Past Medical History Attestation: Yes The following information was validated with the patient. Source: old records reviewed Medical history: CHF (HFpEF), COPD, CVA, dementia, diabetes, hypertension, renal disease, other Additional medical history: respiratory failure, b/l lymphedema, dissection of thoracic aorta, hyperkalemia, uti Psychiatric history: anxiety, depression, other - Past Surgical History Surgical History: other Additional surgical history: unable to obtain at this time. - Social History Smoking Status: Never smoker Smokeless Tobacco Status: No Alcohol use: none Drug use: none - Family History Mother History Unknown: Yes Father History Unknown: Yes Medications and Allergies Acetaminophen [Non-Aspirin] 650 mg PO Q4H PRN 12/06/18 [History] Aspirin [Lo-Dose Aspirin EC] 81 mg PO DAILY 12/06/18 [History] Atorvastatin [Lipitor] 40 mg PO HS 12/06/18 [History] Calcium Carbonate/Vitamin D3 [Calcium 600 + Vit D Tablet] 1 each PO DAILY 12/06/18 [History] Carvedilol [Coreg] 25 mg PO DAILY 12/06/18 [History] Dextromethorphan HBr/Quinidine [Nuedexta 20-10 mg Capsule] 1 each PO BID 12/06/18 [History] Divalproex Sodium [Depakote] 125 mg PO TID 12/06/18 [History] Docusate Sodium [Dok] 100 mg PO BID 12/06/18 [History] Haloperidol Lactate [Haldol] 5 mg IJ Q8HR PRN 12/06/18 [History] LORazepam [Ativan] 0.5 mg PO DAILY 12/06/18 [History] Mag Hydrox/Aluminum Hyd/Simeth [Cvs Antacid Plus Anti-Gas Liq] 30 ml PO Q6H PRN 12/06/18 [History] Magnesium Hydroxide [Milk of Magnesia] 30 ml PO DAILY PRN 12/06/18 [History] NIFEdipine [Nifedipine ER] 90 mg PO DAILY 12/06/18 [History] Ondansetron ODT [Zofran ODT] 4 mg SL Q6HR PRN 12/06/18 [History] Oxycodone HCl [Roxybond] 5 mg PO BID 12/06/18 [History] Sertraline [Zoloft] 25 mg PO DAILY 12/06/18 [History] Sertraline [Zoloft] 50 mg PO DAILY 12/06/18 [History] Sodium Bicarbonate 650 mg PO TIDAC 12/06/18 [History] Torsemide [Demadex] 40 mg PO DAILY 12/06/18 [History] hydrALAZINE [HydrALAZINE] 10 mg PO BID 12/06/18 [History] hydrOXYzine HCl [Hydroxyzine HCl] 12.5 mg IM Q8H PRN 12/06/18 [History] hydrOXYzine HCl [Hydroxyzine HCl] 25 mg PO BID 12/06/18 [History] Allergy/AdvReac Type Severity Reaction Status Date / Time No Known Allergies Allergy Verified 12/06/18 14:54 ROS unobtainable: due to mental status All Systems Review: The remainder of the systems were reviewed and are negative Physical Examination Vital Signs, Last 4 Hours Temp Pulse Resp BP Pulse Ox 12/09/18 10:04 117/64 12/09/18 08:30 56 12/09/18 07:55 64 116/64 12/09/18 07:33 12 98 12/09/18 07:29 97.8 F 12/09/18 07:05 96.9 F L 53 12 103/87 97 General: Other (drowsy, thin elderly appearing WF) HEENT: Atraumatic, Normocephaly Cardiac: Reg Rate and Rhythm, Normal S1 and S2 Lungs: Normal Breath Sounds Neuro: Alert and responsive (to self only) Abdomen: Soft Skin: No rashes noted on visualized skin Musculoskeletal: No Chest Wall Tenderness Extremities: Other (mild, non-pitting BLE edema) Results 12/09/18 05:54 12/09/18 05:54 Lab Results 12/08/18 12/08/18 12/08/18 16:58 16:58 21:06 WBC 12.5 H D 11.6 H Hgb 11.0 L 10.8 L Hct 34.0 L 34.3 L Plt Count 160 154 INR Sodium 140 Potassium 4.4 Chloride 105 Carbon Dioxide 21 L BUN 71 H Creatinine 4.05 H Glucose 140 H Calcium 8.2 L Magnesium 2.2 Total Bilirubin 0.5 AST 14 ALT 7 Alkaline Phosphatase 47 12/08/18 12/09/18 12/09/18 21:06 05:54 05:54 WBC 8.8 Hgb 10.5 L Hct 33.7 L Plt Count 135 L INR 1.3 Sodium 140 Potassium 5.4 H Chloride 106 Carbon Dioxide 20 L BUN 84 H Creatinine 4.83 H Glucose 116 H Calcium 8.2 L Magnesium Total Bilirubin AST ALT Alkaline Phosphatase Active Medications Acetaminophen (Tylenol) 650 mg PO Q6HR PRN PRN Reason: Mild Pain/Fever Stop: 06/07/19 17:36 Al Hydrox/Mg Hydrox/Simethicone (Maalox) 30 ml PO Q6H PRN PRN Reason: Indigestion Albuterol Sulfate (Proventil Neb) 2.5 mg IH [id number] PRN; Protocol PRN Reason: Shortness Of Breath/Wheezing Stop: 06/07/19 18:21 Albuterol/Ipratropium (Duoneb) 3 ml IH [id number] [facility]; Protocol Stop: 06/09/19 16:01 Last Admin: 12/09/18 07:21 Dose: 3 ml Documented by: Aspirin (Aspirin Ec) 81 mg PO DAILY [facility] Stop: 06/08/19 09:01 Last Admin: 12/09/18 08:15 Dose: 81 mg Documented by: Atorvastatin Calcium (Lipitor) 40 mg PO HS [facility] Stop: 06/07/19 21:01 Last Admin: 12/08/18 21:23 Dose: 40 mg Documented by: Calcium Carbonate (Tums) 500 mg PO DAILY [facility] Stop: 06/08/19 09:01 Last Admin: 12/09/18 08:15 Dose: 500 mg Documented by: Cefdinir (Omnicef) 300 mg PO DAILY [facility]; Protocol Stop: 06/10/19 09:01 Last Admin: 12/09/18 08:14 Dose: 300 mg Documented by: Dextrose/Water (Dextrose 50% (Syg)) 25 ml IVP AD PRN PRN Reason: Hypoglycemia Stop: 06/07/19 18:27 Divalproex Sodium (Depakote Sprinkle) 125 mg PO TID [facility] Stop: 06/07/19 21:01 Last Admin: 12/09/18 08:15 Dose: 125 mg Documented by: Docusate Sodium (Colace) 100 mg PO BID [facility]; Protocol Stop: 06/07/19 21:01 Last Admin: 12/09/18 08:14 Dose: 100 mg Documented by: Furosemide (Lasix) 40 mg IVP BIDDIURETIC [facility] Stop: 06/09/19 17:01 Last Admin: 12/09/18 08:14 Dose: 40 mg Documented by: Glucagon (Glucagen) 1 mg IM ONCE PRN PRN Reason: Hypoglycemia Stop: 06/07/19 18:27 Glucose (Gluctose) 15 gm PO ONCE PRN PRN Reason: Hypoglycemia Stop: 06/07/19 18:27 Glucose (Gluctose) 30 gm PO ONCE PRN PRN Reason: Hypoglycemia Stop: 06/07/19 18:27 Haloperidol Lactate (Haldol) 1 mg IM Q8H PRN PRN Reason: Delerium Stop: 06/09/19 08:24 Last Admin: 12/08/18 10:08 Dose: 1 mg Documented by: Heparin Sodium (Porcine) (Heparin) 5,000 unit SQ Q8HCO [facility] Stop: 06/09/19 22:01 Last Admin: 12/09/18 05:02 Dose: 5,000 unit Documented by: Hydroxyzine HCl (Hydroxyzine) 12.5 mg IM Q8H PRN PRN Reason: Anxiety Stop: 06/07/19 17:39 Hydroxyzine Pamoate (Hydroxyzine Pamoate) 25 mg PO BID [facility] Stop: 06/07/19 21:01 Last Admin: 12/09/18 08:14 Dose: 25 mg Documented by: Dextrose (Dextrose 5%) 1,000 mls @ 100 mls/hr IVC .Q10H PRN PRN Reason: HYPOGLYCEMIA Stop: 06/07/19 18:27 Amiodarone HCl/Dextrose (Amiodarone Drip Premix 360mg/200ml) 360 mg in 200 mls @ 16.667 mls/hr IVC CONT [facility] Stop: 06/10/19 00:01 Last Infusion: 12/09/18 05:04 Dose: 0 mg/min, 0 mls/hr Documented by: Insulin Human Lispro (Humalog) 0 units SQ HS [facility]; Protocol Stop: 06/07/19 21:01 Last Admin: 12/08/18 19:31 Dose: Not Given Documented by: Insulin Human Lispro (Humalog) 0 units SQ TIDAC [facility]; Protocol Stop: 06/08/19 07:31 Last Admin: 12/09/18 08:15 Dose: Not Given Documented by: Lorazepam (Ativan) 0.5 mg PO DAILY [facility] Stop: 06/08/19 09:01 Last Admin: 12/09/18 08:15 Dose: 0.5 mg Documented by: Magnesium Hydroxide (Milk Of Magnesia Conc) 10 ml PO DAILY PRN PRN Reason: Constipation Metoprolol Tartrate (Lopressor) 12.5 mg PO BID [facility] Stop: 06/10/19 09:01 Last Admin: 12/09/18 08:15 Dose: Not Given Documented by: Naloxone HCl (Narcan) 0.4 mg IVP Q2MPRN PRN PRN Reason: SEE COMMENTS Stop: 06/07/19 17:36 Oxycodone HCl (Roxicodone) 5 mg PO BID [facility] Stop: 06/07/19 21:01 Last Admin: 12/09/18 08:14 Dose: 5 mg Documented by: Prednisone (Prednisone) 40 mg PO DAILY [facility] Stop: 06/10/19 09:01 Last Admin: 12/09/18 08:14 Dose: 40 mg Documented by: Sertraline HCl (Zoloft) 75 mg PO DAILY [facility] Stop: 06/08/19 09:01 Last Admin: 12/09/18 08:15 Dose: 75 mg Documented by: Sodium Bicarbonate (Sodium Bicarbonate) 650 mg PO TIDAC [facility] Stop: 06/08/19 07:31 Last Admin: 12/09/18 08:14 Dose: 650 mg Documented by: Vitamin D (Vitamin D) 1,000 unit PO DAILY [facility] Stop: 06/08/19 09:01 Last Admin: 12/09/18 08:15 Dose: 1,000 unit Documented by: - Imaging and Cardiology Echo: report reviewed - EKG Interpretation EKG results cardiology: personally reviewed Consult Discharge Plan - Plan Referrals: NONE,PCP [Primary Care Provider] - (Patient is from [facility] no PCP appointment needed) <OlatundePhilipp A - Last Filed: 12/10/18 21:27> Date of Encounter: 12/10/18 - Attending Attestation I have personally performed a face to face evaluation on this patient. I have reviewed and agree with the documented findings and care plan as documented by the CRIMINAL INTELLIGENCE SPECIALIST. History and Exam by me shows: Patient admitted for afib with RVR. Agree with rate control with B jairo. Not a candidate for OAC as detailed in the CRIMINAL INTELLIGENCE SPECIALIST note above. Thanks, Philipp Velasquez MD [facility] Assessment and Plan Discussion w patient/family: The assessment and plan as outlined above was discussed with the patient and/or family members who expressed understanding and agreement. All questions were answered. Thank you for involving us in the care of your patient. Please call with any questions. History of Present Illness History of present illness: Ms. Walls is a 88 year old female All Systems Review: The remainder of the systems were reviewed and are negative Physical Examination Vital Signs, Last 4 Hours Temp Pulse Resp BP Pulse Ox 12/10/18 20:30 17 94 12/10/18 19:11 97.7 F 76 18 122/66 91 Results 12/10/18 03:47 12/10/18 03:47 Lab Results 12/10/18 12/10/18 03:47 03:47 WBC 9.0 Hgb 10.7 L Hct 34.4 L Plt Count 141 Sodium 144 Potassium 4.7 Chloride 105 Carbon Dioxide 24 BUN 96 H Creatinine 4.89 H Glucose 99 Calcium 8.4 L
--- NOTE | 2018-12-09 11:01 | Consult Note ---
Date of Encounter: 12/09/18 Time of Encounter: 09:40 Assessment & Recommendation (1) Agitation Current visit: Yes Status: Acute Assessment & Recommendation: Staff reported periods of agitation, for which her attending physician gave her a low dose of Haldol prn, one time, which was very effective. As well as low dose Ativan prn, which was given last dose at 0815 this morning. This is probably contributing to her current sedated, calm state. These are appropriate treatment options and the patient appears to be resting comfortably, as comfortably as can be expected in her current medical condition. She does not appear to be in any mental distress or experiencing agitation. (2) Dementia Current visit: Yes Status: Suspected Assessment & Recommendation: By history History of Present Illness Patient: new to practice Requesting Physician: Afia Cabrera MD Reason for consult: Agitation History of present illness: Ms. Vance is a 88 year old female whom psychiatry was requested to see secondary to having agitation in the evenings and at times being combative. 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 The patient's doctor gave her very low dose of Haldol to help with the agitation and it was effective. She also has a been given low dose of Ativan PRN for anxiety and any further added agitation. Patient has not had any more episodes of agitation, nor being combative, since her attending physician prescribed these medications. Ms Vance was able to arouse verbally when I said her name several times very loudly. Review of this case will depend on medical records and objective findings only as Ms Vance is unable to give me any verbal com munication/history at this time. She made eye contact with me, but was nonverbal. She was unable to follow commands and is very weakened by her current severe medical situation. She is resting comfortably, with her agitation resolved. CC: Afia Cabrera MD Past Med Surg Social Fam HX - Past Medical History Medical history: CHF (HFpEF), COPD, CVA, dementia, diabetes, hypertension, renal disease, other - Past Psychiatric History Psychiatric history: Reports: other (unknown) Family psychiatric history: Unknown Family History of Suicide: Unknown - Past Surgical History Surgical History: other - Social History Smoking Status: Never smoker Smokeless Tobacco Status: No Alcohol use: none Drug use: none - Family History Mother History Unknown: Yes Father History Unknown: Yes Medications & Allergies Acetaminophen [Non-Aspirin] 650 mg PO Q4H PRN 12/06/18 [History] Aspirin [Lo-Dose Aspirin EC] 81 mg PO DAILY 12/06/18 [History] Atorvastatin [Lipitor] 40 mg PO HS 12/06/18 [History] Calcium Carbonate/Vitamin D3 [Calcium 600 + Vit D Tablet] 1 each PO DAILY 12/06/18 [History] Carvedilol [Coreg] 25 mg PO DAILY 12/06/18 [History] Dextromethorphan HBr/Quinidine [Nuedexta 20-10 mg Capsule] 1 each PO BID 12/06/18 [History] Divalproex Sodium [Depakote] 125 mg PO TID 12/06/18 [History] Docusate Sodium [Dok] 100 mg PO BID 12/06/18 [History] Haloperidol Lactate [Haldol] 5 mg IJ Q8HR PRN 12/06/18 [History] LORazepam [Ativan] 0.5 mg PO DAILY 12/06/18 [History] Mag Hydrox/Aluminum Hyd/Simeth [Cvs Antacid Plus Anti-Gas Liq] 30 ml PO Q6H PRN 12/06/18 [History] Magnesium Hydroxide [Milk of Magnesia] 30 ml PO DAILY PRN 12/06/18 [History] NIFEdipine [Nifedipine ER] 90 mg PO DAILY 12/06/18 [History] Ondansetron ODT [Zofran ODT] 4 mg SL Q6HR PRN 12/06/18 [History] Oxycodone HCl [Roxybond] 5 mg PO BID 12/06/18 [History] Sertraline [Zoloft] 25 mg PO DAILY 12/06/18 [History] Sertraline [Zoloft] 50 mg PO DAILY 12/06/18 [History] Sodium Bicarbonate 650 mg PO TIDAC 12/06/18 [History] Torsemide [Demadex] 40 mg PO DAILY 12/06/18 [History] hydrALAZINE [HydrALAZINE] 10 mg PO BID 12/06/18 [History] hydrOXYzine HCl [Hydroxyzine HCl] 12.5 mg IM Q8H PRN 12/06/18 [History] hydrOXYzine HCl [Hydroxyzine HCl] 25 mg PO BID 12/06/18 [History] Allergy/AdvReac Type Severity Reaction Status Date / Time No Known Allergies Allergy Verified 12/06/18 14:54 Review of Systems Psychiatric: Reports: irritability Psychiatry Exam - Constitutional Vitals: Temp Pulse Resp BP Pulse Ox 97.8 F 56 14 117/64 97 12/09/18 07:29 12/09/18 08:30 12/09/18 10:47 12/09/18 10:04 12/09/18 10:47 General appearance: thin, other (Lying in a hospital bed in gown. She appears weak and is unable to report any history or convey any other verbal information due to her current medical issues. ) - Psychiatric Patient Orientation: Yes Other (Patient not oriented to answer questions. ) Level of alertness: Other (Responds/opens her eyes to verbal stimuli but does not verbally respond) Behavior: calm Psychomotor activity: Slowed Eye Contact: Minimal Contact Mood Description: Other (weak/tired. Severe medical condition currently) Speech Volume: No speech Speech pattern: non-verbal Results - Labs Labs: Laboratory Last Values WBC 8.8 K/mcL (4.3-11.1) 12/09/18 05:54 RBC 3.71 M/mcL (3.82-4.97) L 12/09/18 05:54 Hgb 10.5 g/dL (11.5-15.4) L 12/09/18 05:54 Hct 33.7 % (35.3-44.9) L 12/09/18 05:54 MCV 90.8 fL (83.0-100.0) 12/09/18 05:54 MCH 28.3 pg (28.0-33.3) 12/09/18 05:54 MCHC 31.2 g/dL (31.6-35.5) L 12/09/18 05:54 RDW 15.9 % (11.5-14.5) H 12/09/18 05:54 Plt Count 135 K/mcL (140-400) L 12/09/18 05:54 MPV 11.1 fL (9.4-12.4) 12/09/18 05:54 Immature Gran % 0.4 % (0-4) 12/07/18 06:17 Seg Neutrophils % 83.1 % 12/07/18 06:17 13.6 % 12/07/18 06:17 2.5 % 12/07/18 06:17 0.0 % 12/07/18 06:17 0.4 % 12/07/18 06:17 4.0 K/mcL (1.6-8.9) 12/07/18 06:17 0.7 K/mcL (0.6-4.6) 12/07/18 06:17 0.1 K/mcL (0.0-1.3) 12/07/18 06:17 0.0 K/mcL (0.0-0.6) 12/07/18 06:17 0.0 K/mcL (0.0-0.2) 12/07/18 06:17 PT 14.3 Seconds (9.4-12.1) H 12/08/18 21:06 INR 1.3 12/08/18 21:06 Heparin Anti-Xa, Unfract 0.06 IU/mL (0.30-0.70) L 12/08/18 21:06 Sample Site R Radial 12/08/18 15:18 ABG pH 7.44 pH Units (7.32-7.45) 12/08/18 15:18 ABG pCO2 37 mmHg (35-45) 12/08/18 15:18 ABG pO2 52 mmHg (85-104) L 12/08/18 15:18 ABG HCO3 25 mEq/L (21-27) 12/08/18 15:18 ABG Total CO2 26 mEq/L (20-26) 12/08/18 15:18 ABG O2 Saturation 88 % (95-98) L 12/08/18 15:18 ABG Base Excess 1 mEq/L (-2 to 3) 12/08/18 15:18 Positive 12/08/18 15:18 VBG pH 7.46 pH Units (7.32-7.42) H 12/06/18 16:03 VBG pCO2 33 mmHg (41-51) L 12/06/18 16:03 VBG pO2 71 mmHg (25-50) H 12/06/18 16:03 VBG HCO3 24 mEq/L (21-27) 12/06/18 16:03 O2 Delivery Device Cannula 12/08/18 15:18 Inspired O2 40.0 (1-15=lpm xs24-281=%) 12/08/18 15:18 Sodium 140 mEq/L (136-145) 12/09/18 05:54 Potassium 5.4 mEq/L (3.5-5.1) H 12/09/18 05:54 Chloride 106 mEq/L (98-107) 12/09/18 05:54 Carbon Dioxide 20 mEq/L (23-29) L 12/09/18 05:54 BUN 84 mg/dL (8-23) H 12/09/18 05:54 4.83 mg/dL (0.60-1.20) H 12/09/18 05:54 Est GFR ( Amer) 10 (> 60) L 12/09/18 05:54 Est GFR (Non-Af Amer) 9 (> 60) L 12/09/18 05:54 17 (6-26) 12/09/18 05:54 Glucose 116 mg/dL (70-105) H 12/09/18 05:54 POC Glucose 109 mg/dL (70-99) H 12/09/18 07:37 Est Mean Plasma Glucose 114 mg/dl 12/08/18 05:35 5.6 % (-5.6) 12/08/18 05:35 316 (280-300) H 12/09/18 05:54 Calcium 8.2 mg/dL (8.6-10.3) L 12/09/18 05:54 Phosphorus 4.9 mg/dL (2.7-4.5) H 12/08/18 16:58 Magnesium 2.2 mg/dL (1.6-2.6) 12/08/18 16:58 0.5 mg/dL (0.3-1.0) 12/08/18 16:58 0.2 mg/dL (0.0-0.2) 12/06/18 15:26 0.4 mg/dL (0.0-1.2) 12/06/18 15:26 AST 14 Units/L (13-39) 12/08/18 16:58 ALT 7 Units/L (7-52) 12/08/18 16:58 47 Units/L (34-104) 12/08/18 16:58 25 mcmol/L (16-53) 12/06/18 15:26 0.03 ng/mL (< 0.04) 12/06/18 15:26 6.6 g/dL (6.4-8.9) 12/08/18 16:58 3.2 g/dL (3.5-5.7) L 12/08/18 16:58 3.4 g/dL (2.4-3.5) 12/08/18 16:58 0.9 (1.1-2.2) L 12/08/18 16:58 0.15 ng/mL (0.00-0.15) 12/06/18 17:35 TSH 1.408 mcIU/mL (0.340-5.600) 12/06/18 15:26 Yellow (Yellow) 12/06/18 15:09 Clear (Clear) 12/06/18 15:09 6.0 pH Units (5.0-8.0) 12/06/18 15:09 Ur Specific [place] 1.012 (1.010-1.025) 12/06/18 15:09 Trace mg/dL (Neg-Trace) 12/06/18 15:09 Normal mg/dL (Normal) 12/06/18 15:09 Negative mg/dL (Negative) 12/06/18 15:09 Negative (Negative) 12/06/18 15:09 Negative (Negative) 12/06/18 15:09 Negative (Negative) 12/06/18 15:09 Normal mg/dL (Normal) 12/06/18 15:09 Ur Leukocyte Esterase Trace (Negative) H 12/06/18 15:09 3-5 per hpf (0-3) H 12/06/18 15:09 0-3 per hpf (0-3) 12/06/18 15:09 Ur Squamous Epith Cells Many per lpf (None-Few) H 12/06/18 15:09 None Seen per hpf (None-Few) 12/06/18 15:09 Hyaline Casts None Seen per lpf (None-Few) 12/06/18 15:09 Ur Culture Indicated? YES (NO) A 12/06/18 15:09 Person Notif of Crit AFIA 12/08/18 15:09 - Impressions Impressions Echocardiogram 12/07/18 13:38 Impressions: LVEF 65%. Normal LV chamber size, wall thickness and function. Severe left ventricular diastolic dysfunction. Atypical septal motion consistent with bundle branch block. Normal right ventricular structure and function. Severely dilated left atrium. Grossly, heavily calcified aortic valve leaflets. Mild-moderate aortic regurgitation. Mild-moderate aortic stenosis. Mean gradient 19 mmHg. Peak velocity 3.15 m/s. There appeared to be an eccentric mitral regurgitation jet, but it was no well evaluated. Mild-moderate tricuspid regurgitation. Moderate-severe pulmonary hypertension. Findings: Study Quality * Technically sub-optimal due to poor echocardiographic windows. ECG Findings * Sinus rhythm with BBB. Left Ventricle * LVEF 65%. * Normal LV chamber size, wall thickness and function. * Severe left ventricular diastolic dysfunction. * Atypical septal motion consistent with bundle branch block. Right Ventricle * Normal right ventricular structure and function. Left Atrium * Severely dilated left atrium. Right Atrium * Normal right atrial size. Interatrial Septum * No evidence of PFO by color Doppler. Aortic Valve * Aortic valve not well visualized. Unable to determine the number of leaflets. * Grossly, heavily calcified aortic valve leaflets. * Mild-moderate aortic regurgitation. * Mild-moderate aortic stenosis. Mean gradient 19 mmHg. Mitral Valve * Mild mitral annular calcification. * There appeared to be an eccentric mitral regurgitation jet, but it was no well evaluated. * No mitral stenosis. Tricuspid Valve * Normal tricuspid valve structure. * Mild-moderate tricuspid regurgitation. * Moderate-severe pulmonary hypertension. Pulmonic Valve * Pulmonic valve is not well visualized. * No pulmonic regurgitation. Aorta * Normally sized aortic root. Pericardium * There is a trivial pericardial effusion present. IVC * Normal IVC dimensions and inspiratory collapse. Pulmonary Artery * Pulmonary artery not well visualized. Chest X-Ray 12/08/18 15:25 IMPRESSION: 1. Bilateral airspace opacities which may represent pulmonary edema or multifocal pneumonia, similar to prior examination. 2. Possible small bilateral pleural effusions. 3. Stable prominence of the superior mediastinum. 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 The degree of aneurysmal dilatation along the distal aortic arch has increased slightly, measuring up to 5.3 cm in maximum dimension, previously 5 cm. No evidence of an acute intramural hematoma. Limited evaluation of the aortic root due to motion artifact. Stable cardiomegaly with heavy multivessel coronary calcifications. Heavy aortic valvular calcifications may be seen with aortic stenosis. Correlate with auscultation. Features of heart failure, including bilateral pleural effusions with probable asymmetric pulmonary edema. Correlate for any clinical signs of infection. D/ / 12/08/2018 22:12:57 Jose C Huston / kenny Interpreting Provider: Jose C Huston Consult Discharge Plan - Plan Referrals: NONE,PCP [Primary Care Provider] - (Patient is from [facility] no PCP appointment needed)
--- NOTE | 2018-12-09 14:17 | Palliative - Consult Note ---
Date of Encounter: 12/09/18 Time of Encounter: 14:10 - Assessment and Plan (1) Generalized pain Current Visit: Yes Status: Acute Assessment and plan: Currently receiving Oxycodone 5mg - had received x2 last 24 hours. MOnitor. S he appears comfortable, and denies pain at present. (2) Delirium Current Visit: Yes Status: Acute Assessment and plan: Currently has low dose Haldol IM PRN. Psychiatric consult is pending. (3) Goals of care, counseling/discussion Current Visit: Yes Status: Acute Assessment and plan: Patient unable to participate in discussion r/t AMS. Spoke with daughter Sharmaine Caldera - [phone] regarding goals of care. Sharmaine did speak with Dr. Cabrera yesterday and had transitioned pt to DNR/DNI. She confirmed this code status today, and also confirmed that per her mother's previously known wishes, she does not want dialysis. She stated that her mother was offered dialysis 4 years ago, when she had capacity to make that decision, and adamantly declined at that time. Sharmaine states since that time, her mother has continually declined both physically, and with her mental health. STates she has very poor quality of life, and would not want any life sustaining measures. She discussed that patient's children have , and she is 71 and unable to come from [place] as noone can care for her animals. Discussed that patient would be eligible for hospice care, and hospice philosophy. Patient is half-way at [facility] and has Medicaid in place - would qualify for hospice with her acute hypoxic resp failure, Left sided CHF, CKD, afib, thoracic aneurysm. Daughter verbalized understanding. Nephrology and Psychiatric consults are still pending. Daughter desires to speak again Wednesday after giving her mother a few days of treatment. If she has not improved greatly, likely transition back to ECF with hospice. Would have to coordinate how hospice admission would take place as she is unable to travel and no access to fax. May be able to email consent. Will f/u on Wednesday am. Supposed to call daughter around 1200 (1000 her time). (4) Palliative care encounter Current Visit: Yes Status: Acute (5) Acute on chronic diastolic CHF (congestive heart failure) Current Visit: Yes Status: Acute (6) Acute respiratory failure with hypoxia Current Visit: Yes Status: Acute (7) Atrial fibrillation Current Visit: Yes Status: Acute Qualifiers: Atrial fibrillation type: paroxysmal Qualified Code(s): I48.0 - Paroxysmal atrial fibrillation (8) CKD (chronic kidney disease) stage 4, GFR 15-29 ml/min Current Visit: Yes Status: Acute (9) Encephalopathy acute Current Visit: Yes Status: Acute Palliative-CN HPI - Data of Consult Consult date: 12/09/18 Requesting Physician: Afia Cabrera MD Primary Care Provider: PCP NONE - Consult Narrative History of present illness: Ms. Walls is a 88 year old female would was brought to [facility] with encephalopathy and agitated behavior. She has history of multiple medical problems including: COPD, chronic kidney disease stage IV, congestive heart failure, thoracic aneurysm with aortic dissection in 2015 and also has a history of dementia. She has resided at [facility] since 2014. Patient initially had afib with RVR on Amiodarone, but has converted to NSR. Cardiology was consulted and made re commendations for medical management, but have signed off. Patient has had continued decline in her renal function since admission as well, nephrology consult is pending. Issues with diuresis r/t decreasing renal function. Was hypoxic in the ER, and has required bipap/high flow oxygen since admission. Left sided heart failure with preserved EF. She has required a sitter r/t agitation. Upon my visit, patient is asleep but awakens easily. Oriented to name only. Appears in no resp distress. Currently on 6L nasal cannula with sao2 93%. Is able to answer yes/no questions. Denies and louisa n/discomfort/dyspnea/nausea/anxiety. She does become agitated and swats my hands/arms with assessment. No family is at bedside. CC: Afia Cabrera MD - Time Spent with Patient Time: Total time spent is greater than 50% in coordination of care (as documented) at patient's floor/unit and/or counseling patient: Time with patient: 45 minutes Past Med Surg Social Fam HX - Past Medical History Medical history: CHF (HFpEF), COPD, CVA, dementia, diabetes, hypertension, renal disease, other Additional medical history: respiratory failure, b/l lymphedema, dissection of thoracic aorta, hyperkalemia, uti Psychiatric history: anxiety, depression, other - Past Surgical History Surgical History: other Additional surgical history: unable to obtain at this time. - Social History Smoking Status: Never smoker Smokeless Tobacco Status: No Alcohol use: none Drug use: none - Family History Mother History Unknown: Yes Father History Unknown: Yes Medications and Allergies Acetaminophen [Non-Aspirin] 650 mg PO Q4H PRN 12/06/18 [History] Aspirin [Lo-Dose Aspirin EC] 81 mg PO DAILY 12/06/18 [History] Atorvastatin [Lipitor] 40 mg PO HS 12/06/18 [History] Calcium Carbonate/Vitamin D3 [Calcium 600 + Vit D Tablet] 1 each PO DAILY 12/06/18 [History] Carvedilol [Coreg] 25 mg PO DAILY 12/06/18 [History] Dextromethorphan HBr/Quinidine [Nuedexta 20-10 mg Capsule] 1 each PO BID 12/06/18 [History] Divalproex Sodium [Depakote] 125 mg PO TID 12/06/18 [History] Docusate Sodium [Dok] 100 mg PO BID 12/06/18 [History] Haloperidol Lactate [Haldol] 5 mg IJ Q8HR PRN 12/06/18 [History] LORazepam [Ativan] 0.5 mg PO DAILY 12/06/18 [History] Mag Hydrox/Aluminum Hyd/Simeth [Cvs Antacid Plus Anti-Gas Liq] 30 ml PO Q6H PRN 12/06/18 [History] Magnesium Hydroxide [Milk of Magnesia] 30 ml PO DAILY PRN 12/06/18 [History] NIFEdipine [Nifedipine ER] 90 mg PO DAILY 12/06/18 [History] Ondansetron ODT [Zofran ODT] 4 mg SL Q6HR PRN 12/06/18 [History] Oxycodone HCl [Roxybond] 5 mg PO BID 12/06/18 [History] Sertraline [Zoloft] 25 mg PO DAILY 12/06/18 [History] Sertraline [Zoloft] 50 mg PO DAILY 12/06/18 [History] Sodium Bicarbonate 650 mg PO TIDAC 12/06/18 [History] Torsemide [Demadex] 40 mg PO DAILY 12/06/18 [History] hydrALAZINE [HydrALAZINE] 10 mg PO BID 12/06/18 [History] hydrOXYzine HCl [Hydroxyzine HCl] 12.5 mg IM Q8H PRN 12/06/18 [History] hydrOXYzine HCl [Hydroxyzine HCl] 25 mg PO BID 12/06/18 [History] Allergy/AdvReac Type Severity Reaction Status Date / Time No Known Allergies Allergy Verified 12/06/18 14:54 ROS unobtainable: due to mental status Palliative Care-Exam - Constitutional Vitals: Temp Pulse Resp BP Pulse Ox 97.9 F 68 16 116/73 92 12/09/18 11:56 12/09/18 11:56 12/09/18 11:56 12/09/18 11:56 12/09/18 11:56 General appearance: Present: no acute distress - Head Head Exam: Present: normal inspection, normocephalic - Respiratory Additional comments: Breath sounds diminished with faint crackles in bases - Cardiovascular Cardiovascular exam: Present: systolic murmur - GI/Abdominal Exam GI/Abdominal exam: Present: normal bowel sounds, soft - Extremities Exam Additional comments: 1-2+ edema bilateral lower extremities - Neurological Exam Neurological exam: Present: alert, altered Additional comments: Oriented to name only. CAlm at present. Does not follow commands. Answers Yes/no to some questions - Skin Skin exam: Present: dry, pallor, warm Internal Medicine - CN: Reslt - Labs CBC & Chem 7: 12/09/18 05:54 12/09/18 05:54 Labs: Short CBC 12/08/18 12/08/18 12/09/18 Range/Units 16:58 21:06 05:54 WBC 12.5 H D 11.6 H 8.8 (4.3-11.1) K/mcL Hgb 11.0 L 10.8 L 10.5 L (11.5-15.4) g/dL Hct 34.0 L 34.3 L 33.7 L (35.3-44.9) % Plt Count 160 154 135 L (140-400) K/mcL BMP 12/08/18 12/09/18 16:58 05:54 Sodium 140 140 Potassium 4.4 5.4 H Chloride 105 106 Carbon Dioxide 21 L 20 L BUN 71 H 84 H Creatinine 4.05 H 4.83 H Glucose 140 H 116 H Calcium 8.2 L 8.2 L Liver Function 12/08/18 Range/Units 16:58 Total Bilirubin 0.5 (0.3-1.0) mg/dL AST 14 (13-39) Units/L ALT 7 (7-52) Units/L Alkaline Phosphatase 47 (34-104) Units/L Albumin 3.2 L (3.5-5.7) g/dL - ABG Interpretation ABG results: ABG ABG pH 7.44 pH Units (7.32-7.45) 12/08/18 15:18 ABG pCO2 37 mmHg (35-45) 12/08/18 15:18 ABG pO2 52 mmHg (85-104) L 12/08/18 15:18 ABG O2 Saturation 88 % (95-98) L 12/08/18 15:18 PT/INR, D-dimer PT 14.3 Seconds (9.4-12.1) H 12/08/18 21:06 - Impressions Impressions Chest X-Ray 12/08/18 15:25 IMPRESSION: 1. Bilateral airspace opacities which may represent pulmonary edema or multifocal pneumonia, similar to prior examination. 2. Possible small bilateral pleural effusions. 3. Stable prominence of the superior mediastinum. 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 The degree of aneurysmal dilatation along the distal aortic arch has increased slightly, measuring up to 5.3 cm in maximum dimension, previously 5 cm. No evidence of an acute intramural hematoma. Limited evaluation of the aortic root due to motion artifact. Stable cardiomegaly with heavy multivessel coronary calcifications. Heavy aortic valvular calcifications may be seen with aortic stenosis. Correlate with auscultation. Features of heart failure, including bilateral pleural effusions with probable asymmetric pulmonary edema. Correlate for any clinical signs of infection. D/ / 12/08/2018 22:12:57 Jose C Huston / kenny Interpreting Provider: Jose C Huston Consult Discharge Plan - Plan Referrals: NONE,PCP [Primary Care Provider] - (Patient is from ECF no PCP appointment needed) Palliative Quality Palliative Quality: Screen for Code Status: Yes, Screen for Goals of Care: Yes, Screen for Pain: Yes, If Pain Regimen Started, Initiate Bowel Regimen: NA, Screen for Nausea/Vomitting: Yes Code Status: 12/06/18 17:35 Resuscitation Status: Active [RES] Routine Comment: Resuscitation Status: Full Code 12/08/18 16:15 CODE [Resuscitation Status: Active] [RES] Routine Comment: Resuscitation Status: [id number]
--- NOTE | 2018-12-09 15:39 | Nephrology Consult Note ---
Date of Encounter: 12/09/18 Time of Encounter: 12:00 Assessment and Plan (1) Stage 5 chronic kidney disease Current Visit: Yes Status: Acute Pt remains at baseline which is end stage and typically requires FURNACE CONVERTER but has refused over the years Might be getting to the terminal end without any FURNACE CONVERTER Can continue diuretics with iv lasix which can be escalated to 80mg bid if needed but not much else to offer from a renal standpoint Palliative care consulted, appreciate recs. Pt now DNRCC-DNI (2) Acute on chronic diastolic CHF (congestive heart failure) Current Visit: Yes Status: Acute Cardiology consulted, appreciate recs (3) Acute respiratory failure with hypoxia Current Visit: Yes Status: Acute Pulmonary consulted, appreciate recs (4) Atrial fibrillation Current Visit: Yes Status: Acute Per cardiology Qualifiers: Atrial fibrillation type: paroxysmal Qualified Code(s): I48.0 - Paroxysmal atrial fibrillation History of Present Illness - Reason for Consult Consult date: 12/09/18 Chronic Kidney Disease Requesting physician: Afia Cabrera - History of Present Illness 88 y o female with PMH of COPD, CHF, thoracic AA, dementia and stage 5 CKD since 2014 apparently refused HD then admitted 12/06/18 from [facility] with altered mental status. Renal consulted for CKD management. Pt seen and examined not really able to engage in any conversation. Eyes were closed and appears to be resting but awakes to touch and gets irritated. sitter at beside. History obtained from records. SCr noted elevated at 4.83, GFR9 with base from 2015 at 4.27, GFR 10. Past Med Surg Social Fam HX - Past Medical History Medical history: CHF (HFpEF), COPD, CVA, dementia, diabetes, hypertension, renal disease, other Additional medical history: respiratory failure, b/l lymphedema, dissection of thoracic aorta, hyperkalemia, uti Psychiatric history: anxiety, depression, other - Past Surgical History Surgical History: other Additional surgical history: unable to obtain at this time. - Social History Smoking Status: Never smoker Smokeless Tobacco Status: No Alcohol use: none Drug use: none - Family History Mother History Unknown: Yes Father History Unknown: Yes Medications and Allergies Acetaminophen [Non-Aspirin] 650 mg PO Q4H PRN 12/06/18 [History] Aspirin [Lo-Dose Aspirin EC] 81 mg PO DAILY 12/06/18 [History] Atorvastatin [Lipitor] 40 mg PO HS 12/06/18 [History] Calcium Carbonate/Vitamin D3 [Calcium 600 + Vit D Tablet] 1 each PO DAILY 12/06/18 [History] Carvedilol [Coreg] 25 mg PO DAILY 12/06/18 [History] Dextromethorphan HBr/Quinidine [Nuedexta 20-10 mg Capsule] 1 each PO BID 12/06/18 [History] Divalproex Sodium [Depakote] 125 mg PO TID 12/06/18 [History] Docusate Sodium [Dok] 100 mg PO BID 12/06/18 [History] Haloperidol Lactate [Haldol] 5 mg IJ Q8HR PRN 12/06/18 [History] LORazepam [Ativan] 0.5 mg PO DAILY 12/06/18 [History] Mag Hydrox/Aluminum Hyd/Simeth [Cvs Antacid Plus Anti-Gas Liq] 30 ml PO Q6H PRN 12/06/18 [History] Magnesium Hydroxide [Milk of Magnesia] 30 ml PO DAILY PRN 12/06/18 [History] NIFEdipine [Nifedipine ER] 90 mg PO DAILY 12/06/18 [History] Ondansetron ODT [Zofran ODT] 4 mg SL Q6HR PRN 12/06/18 [History] Oxycodone HCl [Roxybond] 5 mg PO BID 12/06/18 [History] Sertraline [Zoloft] 25 mg PO DAILY 12/06/18 [History] Sertraline [Zoloft] 50 mg PO DAILY 12/06/18 [History] Sodium Bicarbonate 650 mg PO TIDAC 12/06/18 [History] Torsemide [Demadex] 40 mg PO DAILY 12/06/18 [History] hydrALAZINE [HydrALAZINE] 10 mg PO BID 12/06/18 [History] hydrOXYzine HCl [Hydroxyzine HCl] 12.5 mg IM Q8H PRN 12/06/18 [History] hydrOXYzine HCl [Hydroxyzine HCl] 25 mg PO BID 12/06/18 [History] Allergy/AdvReac Type Severity Reaction Status Date / Time No Known Allergies Allergy Verified 12/06/18 14:54 Review of Systems ROS unobtainable: due to mental status Exam - Vital Signs Vital signs: Initial Vital Signs Temp Pulse Resp BP Pulse Ox 98.3 F 66 22 107/62 95 12/06/18 14:54 12/06/18 14:54 12/06/18 14:54 12/06/18 14:54 12/06/18 14:54 Vital Signs - Last 8 Hours Temp Pulse Resp BP Pulse Ox 12/09/18 14:00 105/62 12/09/18 11:56 97.9 F 68 16 116/73 92 12/09/18 10:47 14 97 12/09/18 10:04 117/64 12/09/18 08:30 56 12/09/18 07:55 64 116/64 Intake and Output 12/08/18 12/09/18 12/09/18 23:59 07:59 15:59 Intake Total 100 / 160 265 / 565 300 / 565 Output Total 375 / 375 50 / 180 130 / 180 Balance -275 / -215 215 / 385 170 / 385 Intake: IV Fluids 265 / 265 Amiodarone Drip Premix 360mg/ 265 / 265 200mL 360 mg In 200 ml @ 0.5 MG /MIN 16.667 mls/hr IVC CONT SHANTEL Rx#:[id number] Oral 100 / 160 0 / 300 300 / 300 Output: Catheter 375 / 375 50 / 180 130 / 180 Urethral (Brooks) 350 / 350 Other: Meal Breakfast Percent of Meal Consumed 5% Weight 61.9 kg Blood Glucose* 148 109 105 Patient Weight 12/09/18 23:59 Weight 61.9 kg - General Appearance General appearance: chronically ill, fatigue, frail EENT: ATNC, mucous membranes dry Neck: no JVD, supple Additional Comments: good areation ant bilat Cardiology: edema (trace to +1 LE edema bilat), normal S1, normal S2 Gastrointestinal: no tenderness, no guarding Integumentary: warm and dry Neurologic: confused, disoriented Musculoskeletal: no deformities Psychiatric: cooperative Results - Lab Results 12/09/18 05:54 12/09/18 05:54 Most recent lab results 12/09/18 05:54 Calcium 8.2 L Consult Discharge Plan - Plan Referrals: NONE,PCP [Primary Care Provider] - (Patient is [facility] no PCP appointment n eeded)
--- NOTE | 2018-12-09 17:34 | Electrocardiograph Report ---
[place] [address] Test Date: 2018-12-08 Pat Name: Lida Walls Department: 110 Room: 2N13 Gender: F [employer] [place] Man: : 1930 Requested By: Afia Cabrera Order Number: [id number] Reading MD: Philipp Velasquez Measurements Intervals [place] Rate: 119 P: TN: 0 QRS: -24 QRSD: 101 T: 128 QT: 312 QTc: 383 Interpretive Statements ATRIAL FIBRILLATION WITH RAPID VENTRICULAR RESPONSE BORDERLINE LEFT AXIS DEVIATION [QRS AXIS < -20] MODERATE VOLTAGE CRITERIA FOR LVH ST DEVIATION AND MODERATE T-WAVE ABNORMALITY, CONSIDER LATERAL ISCHEMIA Electronically Signed On 12-09-2018 17:32:58 EDT by Philipp Velasquez
--- NOTE | 2018-12-09 17:43 | Electrocardiograph Report ---
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
--- NOTE | 2018-12-09 17:44 | Electrocardiograph Report ---
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
--- NOTE | 2018-12-09 17:48 | Electrocardiograph Report ---
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
[2018-12-10] MEDS: Ipratropium/Albuterol Neb 3 ML IH SCH ×6 (03:51→23:51)
[2018-12-10 04:12] LABS: Hematocrit 34.4 % (35.3-44.9); Hemoglobin 10.7 g/dL (11.5-15.4); Mean Corpuscular HGB Conc 31.1 g/dL (31.6-35.5); Mean Corpuscular Hemoglobin 28.2 pg (28.0-33.3); Mean Corpuscular Volume 90.5 fL (83.0-100.0); Mean Platelet Volume 11.3 fL (9.4-12.4); Platelet Count 141 K/mcL (140-400); Red Cell Distribution Width 15.9 % (11.5-14.5)
[2018-12-10 04:30] LABS: Calcium 8.4 mg/dL (8.6-10.3); Potassium 4.7 mEq/L (3.5-5.1)
[2018-12-10] MEDS: *HR* Heparin 5,000 UNIT/ML VIAL SQ SCH ×3 (05:06→21:39)
[2018-12-10] MEDS: *HR* LORazepam 0.5 MG TABLET PO SCH (07:37)
[2018-12-10] MEDS: Insulin LISPRO 300 UNITS/3 ML VIAL SQ SCH ×4 (07:48→22:27)
[2018-12-10] MEDS: Furosemide 40 MG/4 ML VIAL IVP SCH ×2 (08:29→19:10)
[2018-12-10] MEDS: predniSONE 20 MG TABLET PO SCH (10:13)
[2018-12-10] MEDS: Cefdinir 300 MG CAPSULE PO SCH ×2 (10:13→11:14)
[2018-12-10] MEDS: Cholecalciferol (D-3) 1,000 UNIT TABLET PO SCH ×2 (10:13→11:14)
[2018-12-10] MEDS: Divalproex Sodium 125 MG CAPSULE PO SCH ×3 (10:14→21:38)
[2018-12-10] MEDS: *HR* OxyCODONE Immed Rel 5 MG TABLET PO SCH ×2 (10:14→21:39)
[2018-12-10] MEDS: hydrOXYzine pamoate 25 MG CAPSULE PO SCH ×2 (10:14→21:38)
[2018-12-10] MEDS: Aspirin Enteric Coated 81 MG Tablet PO SCH (10:14)
--- NOTE | 2018-12-10 10:30 | Palliative Progress Note ---
Date of Encounter: 12/10/18 Time of Encounter: 09:30 - Assessment and plan (1) Goals of care, counseling/discussion Current Visit: Yes Status: Acute Assessment and plan: Called patient's daughter Sharmaine Caldera and updated on patient's medical condition, and her unwillingness to continue BiPAP. She was made aware that pt was desaturating on nc, and that without BiPAP she is likely to soon. Sharmaine stated that pt has always been very strong on what she wants or does not want done. She believes that her refusal of BiPAP is in line with her previously stated wishes, as patient have wishes to since she lost her autonomy. Patient has expressed that her current quality of life was unacceptable. Sharmaine would like at this point to avoid all intervention that may give discomfort to patient, all life prolonging procedure and medication and focus on comfort care. Discussed that today being Wednesday, hospice admission will not be logistically efficient, but patient can be converted to comfort care only and transferred to the palliative care bed if any available. Code status changed to DNRCC, state form signed and copy placed in the medical record. Plan: - discontinue BiPAP, cardiac monitors and all measures and medication not related to comfort. - patient receiving low dose opioids and ativan for pain, will add prn doses for dyspnea and anxiety. - If pt survives over the week-end, will enrol on hospice on Wednesday, and depending on clinical course, GIP or return to SNF on hospice. - Discussed with primary hospitalist. Palliative care will continue to follow closely. (2) Generalized pain Current Visit: Yes Status: Acute Assessment and plan: Patient is on home dose of pain medication 5mg BID. (3) Acute respiratory failure with hypoxia Current Visit: Yes Status: Acute Assessment and plan: -d/c BiPAP per patient and family request. -continue oxygen supplement by pa as tolerated. -Fentanyl 25 mcg IV for dyspnea. -Ativan 1mg IV prn for anxiety (4) Delirium Current Visit: Yes Status: Acute Assessment and plan: patient remains calm today, received 2 dose of Haldol more than 24 hrs ago. - continue sertraline, Ativan 0.5 mg qd. (5) Palliative care encounter Current Visit: Yes Status: Acute (6) CKD (chronic kidney disease) stage 4, GFR 15-29 ml/min Current Visit: Yes Status: Acute Assessment and plan: Patient and family decided against HD - Time Spent With Patient Total time spent is greater than 50% in coordination of care (as documented) at patient's floor/unit and/or counseling patient: Greater than 35 minutes - Subjective Interval history: Patient today was awake, on Bipap. She appeared very uncomfortable, asking again and again for the mask to be removed. Hospitalist Dr. Cabrera was present. - Constitutional Vitals: Abnormal lab results WBC 11.6 K/mcL (4.3-11.1) H 12/08/18 21:06 RBC 3.80 M/mcL (3.82-4.97) L 12/10/18 03:47 Hgb 10.7 g/dL (11.5-15.4) L 12/10/18 03:47 Hct 34.4 % (35.3-44.9) L 12/10/18 03:47 MCHC 31.1 g/dL (31.6-35.5) L 12/10/18 03:47 RDW 15.9 % (11.5-14.5) H 12/10/18 03:47 Plt Count 135 K/mcL (140-400) L 12/09/18 05:54 PT 14.3 Seconds (9.4-12.1) H 12/08/18 21:06 Heparin Anti-Xa, Unfract 0.06 IU/mL (0.30-0.70) L 12/08/18 21:06 ABG pH 7.46 pH Units (7.32-7.45) H 12/08/18 15:09 ABG pO2 52 mmHg (85-104) L 12/08/18 15:18 ABG Total CO2 27 mEq/L (20-26) H 12/08/18 15:09 ABG O2 Saturation 88 % (95-98) L 12/08/18 15:18 VBG pH 7.46 pH Units (7.32-7.42) H 12/06/18 16:03 VBG pCO2 33 mmHg (41-51) L 12/06/18 16:03 VBG pO2 71 mmHg (25-50) H 12/06/18 16:03 Potassium 5.4 mEq/L (3.5-5.1) H 12/09/18 05:54 Carbon Dioxide 20 mEq/L (23-29) L 12/09/18 05:54 BUN 96 mg/dL (8-23) H 12/10/18 03:47 4.89 mg/dL (0.60-1.20) H 12/10/18 03:47 Est GFR ( Amer) 10 (> 60) L 12/10/18 03:47 Est GFR (Non-Af Amer) 8 (> 60) L 12/10/18 03:47 Glucose 116 mg/dL (70-105) H 12/09/18 05:54 POC Glucose 119 mg/dL (70-99) H 12/09/18 16:08 328 (280-300) H 12/10/18 03:47 Calcium 8.4 mg/dL (8.6-10.3) L 12/10/18 03:47 Phosphorus 4.9 mg/dL (2.7-4.5) H 12/08/18 16:58 3.2 g/dL (3.5-5.7) L 12/08/18 16:58 3.6 g/dL (2.4-3.5) H 12/06/18 15:26 0.9 (1.1-2.2) L 12/08/18 16:58 Ur Leukocyte Esterase Trace (Negative) H 12/06/18 15:09 3-5 per hpf (0-3) H 12/06/18 15:09 Ur Squamous Epith Cells Many per lpf (None-Few) H 12/06/18 15:09 Ur Culture Indicated? YES (NO) A 12/06/18 15:09 Exam: General: Patient is alert, oriented to self. Head: atraumatic, normocephalic Respiratory: Coarse breath sounds bilaterally; decreased breath sounds at bases bilat. no wheezing Cardiovascular: Regular rate and rhythm. s1 and s2 normal has systolic murmur in the apex and systolic murmur in the right second intercoastal space. +1 edema of bilateral lower extremities Abdomen: Abdomen is soft, nontender. Bowel sounds are present Skin: warm, dry, intact. has multiple ecchymosis of the bilateral upper extremities. Neuro: Alert oriented x 1, speech is comprehendible, no focality noted. Palliative Quality Palliative Quality: Screen for Code Status: Yes, Screen for Goals of Care: Yes, Screen for Pain: Yes, If Pain Regimen Started, Initiate Bowel Regimen: NA, Screen for Nausea/Vomitting: Yes Code Status: 12/06/18 17:35 Resuscitation Status: Active [RES] Routine Comment: Resuscitation Status: Full Code 12/08/18 16:15 CODE [Resuscitation Status: Active] [RES] Routine Comment: Resuscitation Status: [id number] 12/10/18 10:20 Resuscitation Status: Active [RES] Routine Comment: Resuscitation Status: DNR-Comfort Care - Labs CBC & Chem 7: 12/10/18 03:47 12/10/18 03:47 Labs: Laboratory Results - last 24 hr 12/08/18 12/09/18 12/09/18 16:26 11:55 16:08 WBC RBC Hgb Hct MCV MCH MCHC RDW Plt Count MPV Sodium Potassium Chloride Carbon Dioxide BUN Creatinine Est GFR ( Amer) Est GFR (Non-Af Amer) BUN/Creatinine Ratio Glucose POC Glucose 112 H 105 H 119 H Calculated Osmolality Calcium 12/10/18 12/10/18 03:47 03:47 WBC 9.0 RBC 3.80 L Hgb 10.7 L Hct 34.4 L MCV 90.5 MCH 28.2 MCHC 31.1 L RDW 15.9 H Plt Count 141 MPV 11.3 Sodium 144 Potassium 4.7 Chloride 105 Carbon Dioxide 24 BUN 96 H Creatinine 4.89 H Est GFR ( Amer) 10 L Est GFR (Non-Af Amer) 8 L BUN/Creatinine Ratio 20 Glucose 99 POC Glucose Calculated Osmolality 328 H Calcium 8.4 L - Impressions Impressions Chest CT 12/08/18 20:14 IMPRESSION: No substantial change in chronic type B dissection. The degree of aneurysmal dilatation along the distal aortic arch has increased slightly, measuring up to 5.3 cm in maximum dimension, previously 5 cm. No evidence of an acute intramural hematoma. Limited evaluation of the aortic root due to motion artifact. Stable cardiomegaly with heavy multivessel coronary calcifications. Heavy aortic valvular calcifications may be seen with aortic stenosis. Correlate with auscultation. Features of heart failure, including bilateral pleural effusions with probable asymmetric pulmonary edema. Correlate for any clinical signs of infection. Exam findings were called by Dr. Jose C Huston to Dr. Lehman on 12/08/2018 at 22:21. D/ / 12/08/2018 22:12:57 Jose C Huston / kenny Interpreting Provider: Jose C Huston - ABG Interpretation ABG results: ABG ABG pH 7.44 pH Units (7.32-7.45) 12/08/18 15:18 ABG pCO2 37 mmHg (35-45) 12/08/18 15:18 ABG pO2 52 mmHg (85-104) L 12/08/18 15:18 ABG O2 Saturation 88 % (95-98) L 12/08/18 15:18 PT/INR, D-dimer PT 14.3 Seconds (9.4-12.1) H 12/08/18 21:06 Consult Discharge Plan - Plan Referrals: NONE,PCP [Primary Care Provider] - (Patient is from [facility] no PCP appointment needed)
--- NOTE | 2018-12-10 10:39 | Internal Med Progress Note ---
Hospitalist Progress Note - Encounter Date of Encounter: 12/10/18 Time of Encounter: 09:30 - Subjective Interval History: Patient was seen and examined at bedside. Alert and follows commands however oriented just to herself. Try to take BiPAP off. Palliative physician at bedside we discussed the plan of care. I discussed that I will call her daughter discuss her status and plan of care with her. Sharmaine Arreola - [phone] was called I discussed that her mother does not like the BiPAP on and continues to fight it off. She is following commands. I discussed that she does desaturate when she takes the BiPAP off. Daughter reports that she would not want her mother to suffer. she had spoken to palliative care team yesterday and and is open the option of hospice however does not have a fax machine and was unsure if she could complete the hospice form with an email. I discussed that I will speak to the palliative team today and have them contact her for further information in regards to this. She is not complaining of any pain. is requesting water and to have Bipap mask removed. - Exam Vitals: Temp Pulse Resp BP Pulse Ox 97.9 F 80 18 129/96 90 12/10/18 07:02 12/10/18 07:02 12/10/18 08:06 12/10/18 07:02 12/10/18 08:06 Exam: General: Patient is alert, no acute distress, oriented x 1, looks ill, follows commands, has bipap on Head: atraumatic, normocephalic, ENT: Mucous membranes dry Chest: normal inspection, symmetric chest rise, has deformity of the left anterior chest Respiratory: Coarse breath sounds bilaterally; decreased breath sounds at bases bilat. no wheezing Cardiovascular: Regular rate and rhythm. s1 and s2 normal has systoic murmur in the apex and systolic murmur in the right second intercoastal space. +1 edema of bilateral lower extremities Abdomen: Abdomen is soft, nontender. Bowel sounds are present Musculoskeletal: Spontaneously moving all extremities , no calf discoloration or tenderness. Skin: warm, dry, intact. has multiple ecchymosis of the bilateral upper extremities. Neuro: Alert oriented x 1, speech is comprehendible, follows simple commands as she moves all extremities on command. sensation intact Psych: Patient's affect is normal - Assessment and Plan (1) Acute on chronic diastolic CHF (congestive heart failure) Current Visit: Yes Status: Acute Assessment and Plan: CXR with vascular congestion. TTE with EF of 65% and severe diastolic dysfunction. strict I/O started on low dose metoprolol nephrology onboard "Might be getting to the terminal end without any STROKE COORDINATOR" will continue with IV lasix for now kemp was inserted for strict i/O daily weights LVEF 65%. Normal LV chamber size, wall thickness and function. Severe left ventricular diastolic dysfunction. Atypical septal motion consistent with bundle branch block. Normal right ventricular structure and function. Severely dilated left atrium. Grossly, heavily calcified aortic valve leaflets. Mild-moderate aortic regurgitation. Mild-moderate aortic stenosis. Mean gradient 19 mmHg. Peak velocity 3.15 m/s. There appeared to be an eccentric mitral regurgitation jet, but it was no well evaluated. Mild-moderate tricuspid regurgitation. Moderate-severe pulmonary hypertension. (2) Acute respiratory failure with hypoxia Current Visit: Yes Status: Acute Assessment and Plan: In the ER she was first noted to have sats of 80% on room air and was placed on oxygen and is presently on 3 L oxygen saturating at 97% desaturated on 12/08 was placed on Bipap with improvement of her respiratory status - transitioned to high flow nasal cannula CXR with congestion ABG with High A-a gradient hypoxecmia pulmonology on board will continue with Bipap for now as saturations have again trended down. continue with Duo-nebs Doubt PE as oxygenation improved with bipap and lasix overnight and TTE without RV dysfunction. daughter understands that the prognosis is poor and she is becoming bipap dependent. 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 as compared to TTE on 06/2018 new pulm HTN, normal RV function. 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 However involvement of the ascending aorta and exact origination is difficult to assess given lack of intravenous contrast. Dissection flap extends to the upper abdominal aorta. 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 The degree of aneurysmal dilatation along the distal aortic arch has increased slightly, measuring up to 5.3 cm in maximum dimension, previously 5 cm. No evidence of an acute in tramural hematoma. Limited evaluation of the aortic root due to motion artifact. daughter would like medical management. continue rate control. prognosis is poor (6) COPD exacerbation Current Visit: Yes Status: Acute Assessment and Plan: Patient presented with hypoxia per ED record and was reportedly having sats of 80% on arrival. continue with BIPAP PRN and high flow nasal cannula - taper off he received Solu-Medrol in the ER. continue with burst of steroids ( prednisone) for 5 days total Bronchodilators. (7) Pneumonia Current Visit: Yes Status: Suspected Assessment and Plan: Chest x-ray shows possible left basal and right mid lung airspace opacities concerning for pneumonia/atelectasis. Patient denies any complaints. She does have dementia. doubt PNA and most likely pulmonary edema procalcitonin negative on omnicef for UTI urine antigens negative MACADAM RAKER consulted (8) Metabolic encephalopathy Current Visit: Yes Status: Acute Assessment and Plan: ?secondary to hypoxia on arrival, PNA and UTI ruled out acute stroke Patient is oriented 1. Answering no to most questions however follows commands discussed with NH and this appears to be her baseline. she has bursts of agitation/crying as per the NH CT head: No acute intracranial abnormality. fall precautions, aspiration precaution Monitor vital signs. Monitor neuro status (9) CKD (chronic kidney disease) stage 4, GFR 15-29 ml/min Current Visit: Yes Status: Acute Assessment and Plan: CKD 4- creatinine currently at baseline as compared to labs in 2015 Disucssed with longterm and it has bee documented that she has CKD4. Creatinine trended up to 4.8 over night as she was hypotensive ( from Afib with RVR) and also in acute on chronic diastolic HF strict i/O - minimal out put from kemp discussed with daughter and she declined dialysis renal US on 12/07- No hydronephrosis or shadowing renal pelvic stones. Overall increased echogenicity of the renal parenchyma, nonspecific finding suggesting medical renal disease. continue sodium bicarb nephrology on board (10) Hypertension Current Visit: Yes Status: Chronic Assessment and Plan: currently controlled with IV lasix hold rest of the home medications (11) Dementia Current Visit: Yes Status: Suspected Assessment and Plan: Patient with history of dementia and behavioral disturbances and mood disorder along with depression. Reported episodes of delirium at longterm and agitation. on multiple medications and mood stabilizers. psych was consulted or medication reconciliation and recommendations Haldol 1 mg IM injection Q8H if patient develops episodes of agitation ( watch QT) discussed possibility of transferring her to geriatric Psych facility once medically stable and daughter is in agreement. as per psych note from [place] - easily agitated with alot of activity, her behavior had worsened, was tearful, mood worse. depression and dementia with behavioral disturbance, Vistaril was added at that time without improvement. her ativan dose has been tapered in the past few months as the facility is trying to decrease narcotic use. (12) Counseling regarding goals of care Current Visit: Yes Status: Acute Assessment and Plan: tried to call emergency contact listed on file- [phone] however the number is disconnected. called [facility] [phone]- and spoke to staff- gave me phone number for daughter [phone] Sharmaine Arreola ( called left voicemail with call back number) as per nursing staff that her daughter does not visit her as she lives in [place]. i called Sharmaine arreola on 12/07 -she understands that her mothers condition is critical. she wishes her mother to remain DNR CCA DNI. i discussed that her prognosis is poor as she also has she understands however she would like to continue conservative management for now as her mother health has been deteriorating for years and she does not see meaningful life for her mother if aggressive measures are taken. she declined dialysis. she reported that her mother told her 5 years ago when she was hospitalized that she wanted to pass away naturally. as per daughter she is the only living relative her siblings ( two sisters in early and her father in the 90s) prognosis is extremely poor as she has thoracic aorta aneurysm, CKD4, mod-severe pulm HTN, acute on chronic diastolic HF palliative care on board - daughter is thinking about DNR CC and hopice (13) Delirium Current Visit: Yes Status: Acute Assessment and Plan: continue with PRN haldol frequent redirection will follow psych recommendations. (14) UTI (urinary tract infection) Current Visit: No Status: Acute Assessment and Plan: strep agalactiae continue with omnicef follow cultures for sensitivity. (15) DVT prophylaxis Current Visit: Yes Status: Acute Assessment and Plan: heparin sc - Time Spent with Patient Total time spent is greater than 50% in coordination of care (as documented) at patient's floor/unit and/or counseling patient: Internal Medicine: Result - Labs CBC & Chem 7: 12/10/18 03:47 12/10/18 03:47 Labs: Short CBC 12/10/18 Range/Units 03:47 WBC 9.0 (4.3-11.1) K/mcL Hgb 10.7 L (11.5-15.4) g/dL Hct 34.4 L (35.3-44.9) % Plt Count 141 (140-400) K/mcL BMP 12/10/18 03:47 Sodium 144 Potassium 4.7 Chloride 105 Carbon Dioxide 24 BUN 96 H Creatinine 4.89 H Glucose 99 Calcium 8.4 L - ABG Interpretation ABG results: ABG ABG pH 7.44 pH Units (7.32-7.45) 12/08/18 15:18 ABG pCO2 37 mmHg (35-45) 12/08/18 15:18 ABG pO2 52 mmHg (85-104) L 12/08/18 15:18 ABG O2 Saturation 88 % (95-98) L 12/08/18 15:18 PT/INR, D-dimer PT 14.3 Seconds (9.4-12.1) H 12/08/18 21:06 - Impressions Impressions Chest CT 12/08/18 20:14 IMPRESSION: No substantial change in chronic type B dissection. The degree of aneurysmal dilatation along the distal aortic arch has increased slightly, measuring up to 5.3 cm in maximum dimension, previously 5 cm. No evidence of an acute intramural hematoma. Limited evaluation of the aortic root due to motion artifact. Stable cardiomegaly with heavy multivessel coronary calcifications. Heavy aortic valvular calcifications may be seen with aortic stenosis. Correlate with auscultation. Features of heart failure, including bilateral pleural effusions with probable asymmetric pulmonary edema. Correlate for any clinical signs of infection. Exam findings were called by Dr. Jose C Huston to Dr. Lehman on 12/08/2018 at 22:21. D/ / 12/08/2018 22:12:57 Jose C Huston / kenny Interpreting Provider: Jose C Huston Consult Discharge Plan - Plan Referrals: NONE,PCP [Primary Care Provider] - (Patient is from [facility] no PCP appointment needed) (3) Atrial fibrillation Qualifiers: Qualified Code(s): I48.0 - Paroxysmal atrial fibrillation (5) Thoracic aortic aneurysm Qualifiers: Qualified Code(s): I71.1 - Thoracic aortic aneurysm, ruptured (7) Pneumonia Qualifiers: Qualified Code(s): J18.9 - Pneumonia, unspecified organism (10) Hypertension Qualifiers: Qualified Code(s): I10 - Essential (primary) hypertension (11) Dementia Qualifiers: Qualified Code(s): F03.91 - Unspecified dementia with behavioral disturbance (14) UTI (urinary tract infection) Qualifiers: Qualified Code(s): N39.0 - Urinary tract infection, site not specified
[2018-12-10] MEDS: *HR* LORazepam 2 MG/ML VIAL IVP PRN ×4 (11:32→19:22)
--- NOTE | 2018-12-10 14:58 | Nephrology Progress Note ---
Date of Encounter: 12/10/18 Time of Encounter: 15:00 - Assessment and Plan (1) Stage 5 chronic kidney disease Current Visit: Yes Status: Acute Pt remains at baseline which is end stage and typically requires [employer] but has refused over the years Might be getting to the terminal end without any [employer] Can continue diuretics with iv lasix which can be escalated to 80mg bid if needed but not much else to offer from a renal standpoint UOP notes at 580cc in the past 24hrs which is fair Will sign off, please reconsult prn (2) Acute on chronic diastolic CHF (congestive heart failure) Current Visit: Yes Status: Acute (3) Acute respiratory failure with hypoxia Current Visit: Yes Status: Acute (4) Atrial fibrillation Current Visit: Yes Status: Acute Qualifiers: Atrial fibrillation type: paroxysmal Qualified Code(s): I48.0 - Paroxysmal atrial fibrillation Subjective Interval history: Intreim noted, pt seen and examined. Reviewed all noted, now comfort care till wednesday. Will be enrolled on hospice care Objective - Vital Signs Vital signs: Vital Signs Temp Pulse Resp BP Pulse Ox 12/10/18 11:19 30 95 12/10/18 11:10 97.9 F 74 21 119/68 95 12/10/18 08:06 18 90 12/10/18 07:02 97.9 F 80 20 129/96 87 12/10/18 05:02 97.5 F L 73 20 130/73 87 12/10/18 03:54 17 93 12/10/18 00:00 60 13 119/74 12/09/18 23:49 24 92 12/09/18 23:42 16 95 12/09/18 22:03 59 14 113/68 95 12/09/18 20:03 66 16 109/67 91 12/09/18 19:52 17 92 12/09/18 17:56 64 108/68 12/09/18 16:17 21 94 12/09/18 16:05 98.8 F 68 18 111/65 92 Intake and Output 12/09/18 12/10/18 12/10/18 23:59 07:59 15:59 Intake Total 0 / 565 Output Total 400 / 580 225 / 225 Balance -400 / -15 -225 / -225 Intake: Oral 0 / 300 Output: Catheter 400 / 580 225 / 225 Other: Stool Size Copious Stool Consistency soft formed Stool Color Brown # Bowel Movements 1 Weight 60.7 kg Blood Glucose* 140 114 122 Patient Weight 12/10/18 23:59 Weight 60.7 kg - Lab 12/10/18 03:47 12/10/18 03:47 Most recent lab results 12/10/18 03:47 Calcium 8.4 L Consult Discharge Plan - Plan Referrals: NONE,PCP [Primary Care Provider] - (Patient is from [facility] no PCP appointment needed)
[2018-12-10] MEDS: *HR* FentaNYL (PF) 100 MCG/2 ML VIAL IVP PRN (15:56)
[2018-12-11] MEDS: *HR* LORazepam 2 MG/ML VIAL IVP PRN ×3 (01:46→08:53)
[2018-12-11] MEDS: Ipratropium/Albuterol Neb 3 ML IH SCH ×6 (04:02→23:50)
[2018-12-11] MEDS: *HR* FentaNYL (PF) 100 MCG/2 ML VIAL IVP PRN (04:35)
[2018-12-11] MEDS: *HR* Heparin 5,000 UNIT/ML VIAL SQ SCH ×3 (04:35→21:32)
[2018-12-11] MEDS: Aspirin Enteric Coated 81 MG Tablet PO SCH (08:03)
[2018-12-11] MEDS: Insulin LISPRO 300 UNITS/3 ML VIAL SQ SCH ×4 (08:03→21:32)
[2018-12-11] MEDS: Cefdinir 300 MG CAPSULE PO SCH (08:04)
[2018-12-11] MEDS: *HR* LORazepam 0.5 MG TABLET PO SCH (08:04)
[2018-12-11] MEDS: hydrOXYzine pamoate 25 MG CAPSULE PO SCH ×2 (08:04→21:32)
[2018-12-11] MEDS: Divalproex Sodium 125 MG CAPSULE PO SCH ×3 (08:04→21:32)
[2018-12-11] MEDS: predniSONE 20 MG TABLET PO SCH (08:04)
[2018-12-11] MEDS: *HR* OxyCODONE Immed Rel 5 MG TABLET PO SCH (08:06)
[2018-12-11] MEDS: Cholecalciferol (D-3) 1,000 UNIT TABLET PO SCH (08:06)
[2018-12-11] MEDS: Furosemide 40 MG/4 ML VIAL IVP SCH ×3 (08:53→16:03)
--- NOTE | 2018-12-11 09:02 | Internal Med Progress Note ---
Hospitalist Progress Note - Encounter Date of Encounter: 12/11/18 Time of Encounter: 08:00 - Subjective Interval History: She was seen and examined at bedside. Laying flat in bed and drowsy on any acute distress. Per my discussion and palliative discussion with daughter Sharmaine Caldera yesterday she was present transitioned to DNR comfort care and was tra nsferred to a palliative bed. As per Sharmaine's request will avoid all interventions that may give discomfort the patient clubbing life prolonging procedure a medications and will focus on comfort care. - Exam Vitals: Temp Pulse Resp BP Pulse Ox 97.6 F 111 17 103/70 99 12/11/18 07:57 12/11/18 07:57 12/11/18 07:57 12/11/18 07:57 12/11/18 07:57 Exam: General: Drowsy, still arousable by touch Head: atraumatic, normocephalic, ENT: Mucous membranes dry Chest: normal inspection, symmetric chest rise, has deformity of the left anterior chest Respiratory: Coarse breath sounds bilaterally; not in respiratory distress Cardiovascular: Regular rate and rhythm. s1 and s2 normal has systoic murmur in the apex and systolic murmur in the right second intercoastal space. +1 edema of bilateral lower extremities Abdomen: Abdomen is soft, nontender. Skin: warm, dry, intact. has multiple ecchymosis of the bilateral upper extremities. - Assessment and Plan (1) Acute on chronic diastolic CHF (congestive heart failure) Current Visit: Yes Status: Acute (2) Acute respiratory failure with hypoxia Current Visit: Yes Status: Acute (3) Atrial fibrillation Current Visit: Yes Status: Acute (4) Pulmonary hypertension Current Visit: Yes Status: Acute (5) Thoracic aortic aneurysm Current Visit: No Status: Acute (6) COPD exacerbation Current Visit: Yes Status: Acute (7) Pneumonia Current Visit: Yes Status: Suspected (8) Metabolic encephalopathy Current Visit: Yes Status: Acute (9) CKD (chronic kidney disease) stage 4, GFR 15-29 ml/min Current Visit: Yes Status: Acute (10) Hypertension Current Visit: Yes Status: Chronic (11) Dementia Current Visit: Yes Status: Suspected (12) Counseling regarding goals of care Current Visit: Yes Status: Acute (13) Delirium Current Visit: Yes Status: Acute (14) UTI (urinary tract infection) Current Visit: No Status: Acute (15) DVT prophylaxis Current Visit: Yes Status: Acute - Summary of Assessment and Plan Summary of Assessment and Plan: Patient is a 88-year-old female with history of CKD4, thoracic aortic aneurysm/dissection that was not operated on since 2014, depression, dementia with behavioral disturbances who was was admitted for acute respiratory failure with hypoxia secondary to acute on chronic diastolic CHF along with pneumonia, has delirium and had also found to have urinary tract infection. Course was complicated with acute onset of atrial fibrillation with rapid ventricular response. Throughout hospitalization plan of care was discussed with daughter Sharmaine Caldera who understood that her overall prognosis was poor due to her multiple comorbidities. Her CODE STATUS was changed to DNR/DNI and palliative care was consulted. She remained BiPAP dependent however was refusing to wear the BiPAP,although her heart rate and blood pressure stabilized. Nephrology, cardiology and pulmonology were consulted throughout hospitalization to help with management of her multiple medical problems including management of her volume status. On 12/10 myself and the palliative care team discussed course with karla Caldera, as per palliative care team, " She believes that her refusal of BiPAP is in line with her previously stated wishes, Sharmaine would like at this point to avoid all intervention that may give discomfort to patient, all life prolonging procedure and medication and focus on comfort care" Discontinued BiPAP, cardiac monitors and all measures and medication not related to comfort. Comfort care medications were initiated as per palliative recommendations If pt survives over the week-end, will enrol on hospice on Wednesday Emotional support provided to karla Caldera - Time Spent with Patient Total time spent is greater than 50% in coordination of care (as documented) at patient's floor/unit and/or counseling patient: less than 15 minutes Plan of Care Discussed with: family Internal Medicine: Result - Labs CBC & Chem 7: 12/10/18 03:47 12/10/18 03:47 - ABG Interpretation ABG results: ABG ABG pH 7.44 pH Units (7.32-7.45) 12/08/18 15:18 ABG pCO2 37 mmHg (35-45) 12/08/18 15:18 ABG pO2 52 mmHg (85-104) L 12/08/18 15:18 ABG O2 Saturation 88 % (95-98) L 12/08/18 15:18 PT/INR, D-dimer PT 14.3 Seconds (9.4-12.1) H 12/08/18 21:06 Consult Discharge Plan - Plan Referrals: NONE,PCP [Primary Care Provider] - (Patient is from [facility] no PCP appointment needed) (3) Atrial fibrillation Qualifiers: Atrial fibrillation type: paroxysmal Qualified Code(s): I48.0 - Paroxysmal atrial fibrillation (5) Thoracic aortic aneurysm Qualifiers: Presence of rupture: ruptured Qualified Code(s): I71.1 - Thoracic aortic aneurysm, ruptured (7) Pneumonia Qualifiers: Pneumonia type: due to unspecified organism Laterality: bilateral Lung location: unspecified part of lung Qualified Code(s): J18.9 - Pneumonia, unspecified organism (10) Hypertension Qualifiers: Hypertension type: essential hypertension Qualified Code(s): I10 - Essential (primary) hypertension (11) Dementia Qualifiers: Dementia type: unspecified type Dementia behavioral disturbance: with behavioral disturbance Qualified Code(s): F03.91 - Unspecified dementia with behavioral disturbance (14) UTI (urinary tract infection) Qualifiers: Urinary tract infection type: site unspecified Hematuria presence: without hematuria Qualified Code(s): N39.0 - Urinary tract infection, site not specified
[2018-12-11] MEDS: *HR* LORazepam Oral Conc 2 MG/ML SL PRN ×3 (10:31→20:18)
--- NOTE | 2018-12-11 13:31 | Palliative Progress Note ---
Date of Encounter: 12/11/18 Time of Encounter: 11:00 - Assessment and plan (1) Goals of care, counseling/discussion Current Visit: Yes Status: Acute Assessment and plan: Per yesterday discussion with patient's daughter, patient remains DNRCC, focus on comfort care. Plan: - off Bipap, refusing nc, will keep off. - patient receiving low dose opioids and ativan for pain, will add prn doses for dyspnea and anxiety. - If pt remains stable, will enrol on hospice on Wednesday, and depending on clinical course, GIP or return to SNF on hospice. Palliative care will continue to follow closely. (2) Generalized pain Current Visit: Yes Status: Acute Assessment and plan: On Oxycodone IR SL (3) Acute respiratory failure with hypoxia Current Visit: Yes Status: Acute Assessment and plan: -off BiPAP per patient and family request. -Fentanyl 25 mcg IV for dyspnea. -Ativan 1mg SL prn for anxiety - on Oxycodone IR SL (4) Delirium Current Visit: Yes Status: Acute Assessment and plan: patient remains calm today, received 2 dose of Haldol more than 24 hrs ago. (5) Palliative care encounter Current Visit: Yes Status: Acute (6) CKD (chronic kidney disease) stage 4, GFR 15-29 ml/min Current Visit: Yes Status: Acute Assessment and plan: Patient and family decided against HD - Time Spent With Patient Total time spent is greater than 50% in coordination of care (as documented) at patient's floor/unit and/or counseling patient: less than 15 minutes - Subjective Interval history: Patient today is not opening eyes, but answering questions by nodding. She is off Bipap, and refusing nc. Morning PO meds were not given due to pt's poor mental status and refusing POs. Also she appears to have pain from IV lines. Will change comfort meds to SL. - Constitutional Vitals: Abnormal lab results WBC 11.6 K/mcL (4.3-11.1) H 12/08/18 21:06 RBC 3.80 M/mcL (3.82-4.97) L 12/10/18 03:47 Hgb 10.7 g/dL (11.5-15.4) L 12/10/18 03:47 Hct 34.4 % (35.3-44.9) L 12/10/18 03:47 MCHC 31.1 g/dL (31.6-35.5) L 12/10/18 03:47 RDW 15.9 % (11.5-14.5) H 12/10/18 03:47 Plt Count 135 K/mcL (140-400) L 12/09/18 05:54 PT 14.3 Seconds (9.4-12.1) H 12/08/18 21:06 Heparin Anti-Xa, Unfract 0.06 IU/mL (0.30-0.70) L 12/08/18 21:06 ABG pH 7.46 pH Units (7.32-7.45) H 12/08/18 15:09 ABG pO2 52 mmHg (85-104) L 12/08/18 15:18 ABG Total CO2 27 mEq/L (20-26) H 12/08/18 15:09 ABG O2 Saturation 88 % (95-98) L 12/08/18 15:18 VBG pH 7.46 pH Units (7.32-7.42) H 12/06/18 16:03 VBG pCO2 33 mmHg (41-51) L 12/06/18 16:03 VBG pO2 71 mmHg (25-50) H 12/06/18 16:03 Potassium 5.4 mEq/L (3.5-5.1) H 12/09/18 05:54 Carbon Dioxide 20 mEq/L (23-29) L 12/09/18 05:54 BUN 96 mg/dL (8-23) H 12/10/18 03:47 4.89 mg/dL (0.60-1.20) H 12/10/18 03:47 Est GFR ( Amer) 10 (> 60) L 12/10/18 03:47 Est GFR (Non-Af Amer) 8 (> 60) L 12/10/18 03:47 Glucose 116 mg/dL (70-105) H 12/09/18 05:54 POC Glucose 114 mg/dL (70-99) H 12/10/18 16:29 328 (280-300) H 12/10/18 03:47 Calcium 8.4 mg/dL (8.6-10.3) L 12/10/18 03:47 Phosphorus 4.9 mg/dL (2.7-4.5) H 12/08/18 16:58 3.2 g/dL (3.5-5.7) L 12/08/18 16:58 3.6 g/dL (2.4-3.5) H 12/06/18 15:26 0.9 (1.1-2.2) L 12/08/18 16:58 Ur Leukocyte Esterase Trace (Negative) H 12/06/18 15:09 3-5 per hpf (0-3) H 12/06/18 15:09 Ur Squamous Epith Cells Many per lpf (None-Few) H 12/06/18 15:09 Ur Culture Indicated? YES (NO) A 12/06/18 15:09 Exam: General: Patient is not opening eyes, oriented to self. Head: atraumatic, normocephalic Respiratory: Coarse breath sounds bilaterally; decreased breath sounds at bases bilat. no wheezing Cardiovascular: Regular rate and rhythm. s1 and s2 normal has systolic murmur in the apex and systolic murmur in the right second intercoastal space. +1 edema of bilateral lower extremities Abdomen: Abdomen is soft, nontender. Bowel sounds are present Skin: warm, dry, intact. has multiple ecchymosis of the bilateral upper ex tremities. Neuro: drowsy, oriented x 1, nodding yes or no. Palliative Quality Palliative Quality: Screen for Code Status: Yes, Screen for Goals of Care: Yes, Screen for Pain: Yes, If Pain Regimen Started, Initiate Bowel Regimen: NA, S creen for Nausea/Vomitting: Yes Code Status: 12/06/18 17:35 Resuscitation Status: Active [RES] Routine Comment: Resuscitation Status: Full Code 12/08/18 16:15 CODE [Resuscitation Status: Active] [RES] Routine Comment: Resuscitation Status: [id number] 12/10/18 10:20 Resuscitation Status: Active [RES] Routine Comment: Resuscitation Status: DNR-Comfort Care - Labs CBC & Chem 7: 12/10/18 03:47 12/10/18 03:47 Labs: Laboratory Results - last 24 hr 12/09/18 12/10/18 20:45 16:29 POC Glucose 141 H 114 H - ABG Interpretation ABG results: ABG ABG pH 7.44 pH Units (7.32-7.45) 12/08/18 15:18 ABG pCO2 37 mmHg (35-45) 12/08/18 15:18 ABG pO2 52 mmHg (85-104) L 12/08/18 15:18 ABG O2 Saturation 88 % (95-98) L 12/08/18 15:18 PT/INR, D-dimer PT 14.3 Seconds (9.4-12.1) H 12/08/18 21:06 Consult Discharge Plan - Plan Referrals: NONE,PCP [Primary Care Provider] - (Patient is from [facility] no PCP appointment needed)
[2018-12-11] MEDS: OXYCODONE Oral CONC 10 MG/0.5 ML ORAL.SYG SL PRN ×3 (13:38→23:30)
[2018-12-12] MEDS: *HR* LORazepam Oral Conc 2 MG/ML SL PRN ×6 (01:42→14:56)
[2018-12-12] MEDS: *HR* FentaNYL (PF) 100 MCG/2 ML VIAL IVP PRN (01:57)
[2018-12-12] MEDS: Ipratropium/Albuterol Neb 3 ML IH SCH ×3 (04:00→11:18)
[2018-12-12] MEDS: OXYCODONE Oral CONC 10 MG/0.5 ML ORAL.SYG SL PRN ×2 (05:48→09:14)
[2018-12-12] MEDS: *HR* Heparin 5,000 UNIT/ML VIAL SQ SCH (07:28)
[2018-12-12] MEDS: hydrOXYzine pamoate 25 MG CAPSULE PO SCH (07:29)
[2018-12-12] MEDS: Aspirin Enteric Coated 81 MG Tablet PO SCH (07:29)
[2018-12-12] MEDS: Insulin LISPRO 300 UNITS/3 ML VIAL SQ SCH (07:29)
[2018-12-12] MEDS: Cefdinir 300 MG CAPSULE PO SCH (07:29)
[2018-12-12] MEDS: Furosemide 40 MG/4 ML VIAL IVP SCH (07:29)
[2018-12-12] MEDS: Divalproex Sodium 125 MG CAPSULE PO SCH (07:29)
[2018-12-12] MEDS: predniSONE 20 MG TABLET PO SCH (07:30)
[2018-12-12] MEDS: Cholecalciferol (D-3) 1,000 UNIT TABLET PO SCH (07:30)
[2018-12-12 08:23] VITALS: BP 108/70
[2018-12-12] MEDS ORDERED: OXYCODONE Oral CONC 10 MG/0.5 ML ORAL.SYG SL PRN (09:28)
--- NOTE | 2018-12-12 09:39 | Palliative Progress Note ---
Date of Encounter: 12/12/18 Time of Encounter: 09:35 - Assessment and plan (1) Generalized pain Current Visit: Yes Status: Acute Assessment and plan: Nurse states that Oxycodone 5mg does not seem to be lasting her 4 hours, and she appears still a little uncomfortable after dose. Will increase to 10mg and increase frequency to every 3 hours. (2) Delirium Current Visit: Yes Status: Acute Assessment and plan: Will begin low dose scheduled Haldol and monitor. (3) Goals of care, counseling/discussion Current Visit: Yes Status: Acute Assessment and plan: Daughter agreeable for hospice care. I believe with her appearance this am, she could transition back to [facility] and enroll in hospice care. [facility] will be calling daughter this am to arrange enrollment. Will D/W Hospitalist. Prescriptions completed for Oxyfast, Lorazepam, and Haloperidol concentrates to be sent to ECF with pt. (4) Palliative care encounter Current Visit: Yes Status: Acute (5) Acute on chronic diastolic CHF (congestive heart failure) Current Visit: Yes Status: Acute (6) Acute respiratory failure with hypoxia Current Visit: Yes Status: Acute (7) Atrial fibrillation Current Visit: Yes Status: Acute Qualifiers: Atrial fibrillation type: paroxysmal Qualified Code(s): I48.0 - Paroxysmal atrial fibrillation (8) CKD (chronic kidney disease) stage 4, GFR 15-29 ml/min Current Visit: Yes Status: Acute (9) Encephalopathy acute Current Visit: Yes Status: Acute - Time Spent With Patient Total time spent is greater than 50% in coordination of care (as documented) at patient's floor/unit and/or counseling patient: - Subjective Interval history: Patient awake, restless. Recently medicated for discomfort. Will not leave oxygen on. Does not follow commands, did not her head "yes" when I asked if she was hurting. Appears in no resp distress. - Constitutional Vitals: Abnormal lab results WBC 11.6 K/mcL (4.3-11.1) H 12/08/18 21:06 RBC 3.80 M/mcL (3.82-4.97) L 12/10/18 03:47 Hgb 10.7 g/dL (11.5-15.4) L 12/10/18 03:47 Hct 34.4 % (35.3-44.9) L 12/10/18 03:47 MCHC 31.1 g/dL (31.6-35.5) L 12/10/18 03:47 RDW 15.9 % (11.5-14.5) H 12/10/18 03:47 Plt Count 135 K/mcL (140-400) L 12/09/18 05:54 PT 14.3 Seconds (9.4-12.1) H 12/08/18 21:06 Heparin Anti-Xa, Unfract 0.06 IU/mL (0.30-0.70) L 12/08/18 21:06 ABG pH 7.46 pH Units (7.32-7.45) H 12/08/18 15:09 ABG pO2 52 mmHg (85-104) L 12/08/18 15:18 ABG Total CO2 27 mEq/L (20-26) H 12/08/18 15:09 ABG O2 Saturation 88 % (95-98) L 12/08/18 15:18 VBG pH 7.46 pH Units (7.32-7.42) H 12/06/18 16:03 VBG pCO2 33 mmHg (41-51) L 12/06/18 16:03 VBG pO2 71 mmHg (25-50) H 12/06/18 16:03 Potassium 5.4 mEq/L (3.5-5.1) H 12/09/18 05:54 Carbon Dioxide 20 mEq/L (23-29) L 12/09/18 05:54 BUN 96 mg/dL (8-23) H 12/10/18 03:47 4.89 mg/dL (0.60-1.20) H 12/10/18 03:47 Est GFR ( Amer) 10 (> 60) L 12/10/18 03:47 Est GFR (Non-Af Amer) 8 (> 60) L 12/10/18 03:47 Glucose 116 mg/dL (70-105) H 12/09/18 05:54 POC Glucose 114 mg/dL (70-99) H 12/10/18 16:29 328 (280-300) H 12/10/18 03:47 Calcium 8.4 mg/dL (8.6-10.3) L 12/10/18 03:47 Phosphorus 4.9 mg/dL (2.7-4.5) H 12/08/18 16:58 3.2 g/dL (3.5-5.7) L 12/08/18 16:58 3.6 g/dL (2.4-3.5) H 12/06/18 15:26 0.9 (1.1-2.2) L 12/08/18 16:58 Ur Leukocyte Esterase Trace (Negative) H 12/06/18 15:09 3-5 per hpf (0-3) H 12/06/18 15:09 Ur Squamous Epith Cells Many per lpf (None-Few) H 12/06/18 15:09 Ur Culture Indicated? YES (NO) A 12/06/18 15:09 General appearance: Present: no acute distress - Respiratory Additional comments: Rales throughout lower lung evans. - Cardiovascular Cardiovascular exam: Present: irregular rhythm, systolic murmur - GI/Abdominal GI/Abdominal exam: Present: normal bowel sounds, soft - Extremities Exam Extremities exam: Present: normal capillary refill, normal inspection - Neurological Exam Neurological exam: Present: altered Additional comments: Appears confused and disoriented. Will not follow commands or verbalize. Keeps eyes tightly squeezed shut. - Skin Skin exam: Present: dry, pallor, warm Palliative Quality Palliative Quality: Screen for Code Status: Yes, Screen for Goals of Care: Yes, Screen for Pain: Yes, If Pain Regimen Started, Initiate Bowel Regimen: NA, Screen for Nausea/Vomitting: Yes Code Status: 12/06/18 17:35 Resuscitation Status: Active [RES] Routine Comment: Resuscitation Status: Full Code 12/08/18 16:15 CODE [Resuscitation Status: Active] [RES] Routine Comment: Resuscitation Status: [id number] 12/10/18 10:20 Resuscitation Status: Active [RES] Routine Comment: Resuscitation Status: DNR-Comfort Care - Labs CBC & Chem 7: 12/10/18 03:47 12/10/18 03:47 - ABG Interpretation ABG results: ABG ABG pH 7.44 pH Units (7.32-7.45) 12/08/18 15:18 ABG pCO2 37 mmHg (35-45) 12/08/18 15:18 ABG pO2 52 mmHg (85-104) L 12/08/18 15:18 ABG O2 Saturation 88 % (95-98) L 12/08/18 15:18 PT/INR, D-dimer PT 14.3 Seconds (9.4-12.1) H 12/08/18 21:06 Consult Discharge Plan - Plan Referrals: NONE,PCP [Primary Care Provider] - (Patient is from [facility] no PCP appointment n eeded) Prescriptions: LORazepam Oral Conc [Ativan Oral Conc] 1 mg PO Q3H PRN 7 Days #30 mls PRN Reason: Anxiety Haloperidol Oral Conc [Haldol] 1 mg PO Q6H #30 mls OXYCODONE Oral CONC [Oxycodone Oral Conc] 10 mg PO Q3H PRN 7 Days #30 oral.syg PRN Reason: pain/dyspnea
[2018-12-12] MEDS ORDERED: Haloperidol Oral Conc 10 MG/5 ML UDC PO SCH (10:00)
--- NOTE | 2018-12-12 13:02 | Discharge Summary ---
Date of Encounter: 12/12/18 Time of Encounter: 12:59 - Discharge Diagnosis (1) Acute on chronic diastolic CHF (congestive heart failure) Priority: Primary Status: Acute (2) Acute respiratory failure with hypoxia Priority: Secondary Status: Acute (3) Atrial fibrillation Priority: Secondary Status: Acute Qualifiers: Atrial fibrillation type: paroxysmal Qualified Code(s): I48.0 - Paroxysmal atrial fibrillation (4) Pulmonary hypertension Priority: Secondary Status: Acute (5) Thoracic aortic aneurysm Priority: Secondary Status: Acute Qualifiers: Presence of rupture: ruptured Qualified Code(s): I71.1 - Thoracic aortic aneurysm, ruptured (6) COPD exacerbation Priority: Secondary Status: Acute (7) Pneumonia Priority: Secondary Status: Suspected Qualifiers: Pneumonia type: due to unspecified organism Laterality: bilateral Lung location: unspecified part of lung Qualified Code(s): J18.9 - Pneumonia, unspecified organism (8) Metabolic encephalopathy Priority: Secondary Status: Acute (9) CKD (chronic kidney disease) stage 4, GFR 15-29 ml/min Priority: Secondary Status: Acute (10) Hypertension Priority: Secondary Status: Chronic Qualifiers: Hypertension type: essential hypertension Qualified Code(s): I10 - Essential (primary) hypertension (11) Dementia Priority: Secondary Status: Suspected Qualifiers: Dementia type: unspecified type Dementia behavioral disturbance: with behavioral disturbance Qualified Code(s): F03.91 - Unspecified dementia with behavioral disturbance (12) Counseling regarding goals of care Priority: Secondary Status: Acute (13) Delirium Priority: Secondary Status: Acute (14) UTI (urinary tract infection) Priority: Secondary Status: Acute Qualifiers: Urinary tract infection type: site unspecified Hematuria presence: without hematuria Qualified Code(s): N39.0 - Urinary tract infection, site not specified (15) DVT prophylaxis Priority: Secondary Status: Acute Hospital course: Patient is a 88-year-old female with history of CKD4, thoracic aortic aneur ysm/dissection that was not operated on since 2014, depression, dementia with behavioral disturbances who was was admitted for acute respiratory failure with hypoxia secondary to acute on chronic diastolic CHF along with pneumonia, has delirium and had also found to have urinary tract infection. Course was complicated with acute onset of atrial fibrillation with rapid ventricular response. Throughout hospitalization plan of care was discussed with daughter Sharmaine Caldera who understood that her overall prognosis was poor due to her multiple comorbidities. Her CODE STATUS was changed to DNR/DNI and palliative care was consulted. She remained BiPAP dependent however was refusing to wear the BiPAP,although her heart rate and blood pressure stabilized. Nephrology, cardiology and pulmonology were consulted throughout hospitalization to help with management of her multiple medical problems including management of her volume status. On 12/10 myself and the palliative care team discussed course with daughter Sharmaine Caldera, as per palliative care team, " She believes that her refusal of BiPAP is in line with her previously stated wishes, Sharmaine would like at this point to avoid all intervention that may give discomfort to patient, all life prolonging procedure and medication and focus on comfort care" Discontinued BiPAP, cardiac monitors and all measures and medication not related to comfort. as per palliative medicine all PO medications discontinued- unable to swallow medications Comfort care medications were initiated as per palliative recommendations adn RX provided by palliative care medicine- will be discharge to [facility] Emotional support provided to daughter Sharmaine Caldera Discharge discussed with: family, social work, case management, marketing regional consultant - Time Spent with Patient Total time spent providing and/or coordinating discharge services: Time spent: Greater than 30 minutes (35) - Discharge Medications Prescriptions: New LORazepam Oral Conc [Ativan Oral Conc] 1 mg PO Q3H PRN 7 Days #30 mls PRN Reason: Anxiety Haloperidol Oral Conc [Haldol] 1 mg PO Q6H #30 mls OXYCODONE Oral CONC [Oxycodone Oral Conc] 10 mg PO Q3H PRN 7 Days #30 oral.syg PRN Reason: pain/dyspnea Albuterol Neb [Proventil Neb] 2.5 mg IH [id number] PRN inhsol PRN Reason: Shortness Of Breath/Wheezing Ipratropium/Albuterol Neb [Duoneb] 3 ml IH [id number] inhsol Continued Ondansetron ODT [Zofran ODT] 4 mg SL Q6HR PRN PRN Reason: Nausea Mag Hydrox/Aluminum Hyd/Simeth [Cvs Antacid Plus Anti-Gas Liq] 30 ml PO Q6H PRN PRN Reason: Indigestion Magnesium Hydroxide [Milk of Magnesia] 30 ml PO DAILY PRN PRN Reason: Constipation Docusate Sodium [Dok] 100 mg PO BID Acetaminophen [Non-Aspirin] 650 mg PO Q4H PRN PRN Reason: Pain Discontinued Torsemide [Demadex] 40 mg PO DAILY Atorvastatin [Lipitor] 40 mg PO HS hydrOXYzine HCl [Hydroxyzine HCl] 12.5 mg IM Q8H PRN PRN Reason: Anxiety Sertraline [Zoloft] 50 mg PO DAILY Haloperidol Lactate [Haldol] 5 mg IJ Q8HR PRN PRN Reason: Agitation Sodium Bicarbonate 650 mg PO TIDAC Oxycodone HCl [Roxybond] 5 mg PO BID NIFEdipine [Nifedipine ER] 90 mg PO DAILY LORazepam [Ativan] 0.5 mg PO DAILY hydrOXYzine HCl [Hydroxyzine HCl] 25 mg PO BID hydrALAZINE [HydrALAZINE] 10 mg PO BID Divalproex Sodium [Depakote] 125 mg PO TID Dextromethorphan HBr/Quinidine [Nuedexta 20-10 mg Capsule] 1 each PO BID Carvedilol [Coreg] 25 mg PO DAILY Calcium Carbonate/Vitamin D3 [Calcium 600 + Vit D Tablet] 1 each PO DAILY Aspirin [Lo-Dose Aspirin EC] 81 mg PO DAILY Sertraline [Zoloft] 25 mg PO DAILY Home Medications: Acetaminophen [Non-Aspirin] 650 mg PO Q4H PRN 12/06/18 [History] Docusate Sodium [Dok] 100 mg PO BID 12/06/18 [History] Mag Hydrox/Aluminum Hyd/Simeth [Cvs Antacid Plus Anti-Gas Liq] 30 ml PO Q6H PRN 12/06/18 [History] Magnesium Hydroxide [Milk of Magnesia] 30 ml PO DAILY PRN 12/06/18 [History] Ondansetron ODT [Zofran ODT] 4 mg SL Q6HR PRN 12/06/18 [History] Albuterol Neb [Proventil Neb] 2.5 mg IH [id number] PRN inhsol 12/12/18 [Rx] Haloperidol Oral Conc [Haldol] 1 mg PO Q6H #30 mls 12/12/18 [Rx] Ipratropium/Albuterol Neb [Duoneb] 3 ml IH [id number] inhsol 12/12/18 [Rx] LORazepam Oral Conc [Ativan Oral Conc] 1 mg PO Q3H PRN 7 Days #30 mls 12/12/18 [Rx] OXYCODONE Oral CONC [Oxycodone Oral Conc] 10 mg PO Q3H PRN 7 Days #30 oral.syg 12/12/18 [Rx] Allergies/Adverse Reactions: Allergy/AdvReac Type Severity Reaction Status Date / Time No Known Allergies Allergy Verified 12/06/18 14:54 Date of admission: 12/06/18 18:28 Primary care physician: PCP NONE Consults: 12/06/18 23:00 Consult to Telecom Analyst [CONS] Routine Reason for SW Consult: D/C planning, pt from [facility] 12/08/18 07:09 Consult to Psychiatry [CONS] Routine Consulting Provider: Psychiatry Ally Reason consult: Agitation Other reason and/or additional details: combative, agitated especially at nights 12/08/18 09:00 Consult to Nurse Navigator [CONS] Routine Comment: copd, chf, pna 12/08/18 17:55 Consult to Cardiology [CONS] Routine Comment: Consulting Provider: Cardiology Ally Reason for Consult: afib with RVR, diastolic CHF Call Completed: Yes 12/08/18 20:16 Consult to Palliative Care [CONS] Routine Comment: Consulting Provider: Palliative Care [place] Reason for Consult: new onset afib has had thoracic aneurysm with dissection, dementia. spoke to daughter ( only on ethat is alive) and she changed code status to DNR/DNI , mother wanted to be comfortable and not to be connected to any machines. Call Completed: No 12/08/18 21:32 Consult to Nephrology [CONS] Routine Consulting Provider: Kidney Ally/RUI/PETAR/MARGARITA Reason for Consult: acute diastolic CHF has CKD 4 and needs diuresing Call Completed: Yes 12/08/18 21:45 Consult to Pulmonology [CONS] Routine Consulting Provider: Pulm Crit Care & Sleep Ally Reason for Consult: acute hypoxic respiratory failure Call Completed: Yes - Constitutional Vitals: Temp Pulse Resp BP Pulse Ox 97.8 F 89 16 108/70 75 12/12/18 08:22 12/12/18 08:22 12/12/18 11:07 12/12/18 08:22 12/12/18 11:07 General appearance: Present: answers questions appropriately Exam: General: Drowsy, still arousable by touch Head: atraumatic, normocephalic, ENT: Mucous membranes dry Chest: normal inspection, symmetric chest rise, has deformity of the left anterior chest Respiratory: Coarse breath sounds bilaterally; not in respiratory distress Cardiovascular: Regular rate and rhythm. s1 and s2 normal has systoic murmur in the apex and systolic murmur in the right second intercoastal space. +1 edema of bilateral lower extremities Abdomen: Abdomen is soft, nontender. Skin: warm, dry, intact. has multiple ecchymosis of the bilateral upper extremities. - Patient Status Disposition: Transfer SNF Condition: Undetermined Functional capacity at discharge: bed bound Overall status at discharge: other (hospice /comfortcare) - Discharge Instructions Follow Up With: NONE,PCP [Primary Care Provider] - (Patient is from [facility] no PCP appointment needed) - Diet and Activity Activity: other (as per hospice ) Diet: regular diet
--- NOTE | 2018-12-12 13:07 | Physician Discharge Referral ---
Home Health/Hosp Referral Info Transfer to: Hospice Provider in Charge Post Discharge: Processing Operator - Diagnosis (1) Acute on chronic diastolic CHF (congestive heart failure) Status: Acute (2) Acute respiratory failure with hypoxia Status: Acute (3) Atrial fibrillation Status: Acute (4) Pulmonary hypertension Status: Acute (5) Thoracic aortic aneurysm Status: Acute (6) COPD exacerbation Status: Acute (7) Pneumonia Status: Suspected (8) Metabolic encephalopathy Status: Acute (9) CKD (chronic kidney disease) stage 4, GFR 15-29 ml/min Status: Acute (10) Hypertension Status: Chronic (11) Dementia Status: Suspected (12) Counseling regarding goals of care Status: Acute (13) Delirium Status: Acute (14) UTI (urinary tract infection) Status: Acute (15) DVT prophylaxis Status: Acute - Respiratory Orders Oxygen / L per min Smoking Cessation: Smoking cessation has been advised. For more information, call the [employer] Quit Line at [phone]. - Diet/Nutrition Diet/Nutrition Orders: Regular - Activity Activity Orders: Bedrest - Transfer Medications Prescriptions: LORazepam Oral Conc [Ativan Oral Conc] 1 mg PO Q3H PRN 7 Days #30 mls PRN Reason: Anxiety Haloperidol Oral Conc [Haldol] 1 mg PO Q6H #30 mls OXYCODONE Oral CONC [Oxycodone Oral Conc] 10 mg PO Q3H PRN 7 Days #30 oral.syg PRN Reason: pain/dyspnea Home Medications: Acetaminophen [Non-Aspirin] 650 mg PO Q4H PRN 12/06/18 [History] Docusate Sodium [Dok] 100 mg PO BID 12/06/18 [History] Mag Hydrox/Aluminum Hyd/Simeth [Cvs Antacid Plus Anti-Gas Liq] 30 ml PO Q6H PRN 12/06/18 [History] Magnesium Hydroxide [Milk of Magnesia] 30 ml PO DAILY PRN 12/06/18 [History] Ondansetron ODT [Zofran ODT] 4 mg SL Q6HR PRN 12/06/18 [History] Albuterol Neb [Proventil Neb] 2.5 mg IH [id number] PRN inhsol 12/12/18 [Rx] Haloperidol Oral Conc [Haldol] 1 mg PO Q6H #30 mls 12/12/18 [Rx] Ipratropium/Albuterol Neb [Duoneb] 3 ml IH [id number] inhsol 12/12/18 [Rx] LORazepam Oral Conc [Ativan Oral Conc] 1 mg PO Q3H PRN 7 Days #30 mls 12/12/18 [Rx] OXYCODONE Oral CONC [Oxycodone Oral Conc] 10 mg PO Q3H PRN 7 Days #30 oral.syg 0 12/12/18 [Rx] Allergies/Adverse Reactions: Allergy/AdvReac Type Severity Reaction Status Date / Time No Known Allergies Allergy Verified 12/06/18 14:54 Certification: Further, I certify that my clinical findings support that this patient is homebound (i.e. absences from home require considerable and taxing effort and are for medical reasons or pentecostalism services or infrequently or short duration when for other reasons) because: Homebound Reason: Patient requires assistance of a person or device to safely leave home Attestation: My signature below is to certify that this patient is under my care and that I, or nurse practitioner, or a physician's assistant professor of theater working with me, has a [id number] encounter with this patient.
--- NOTE | 2018-12-12 13:08 | Physician Discharge Referral ---
ExtendedCare Referral Info Transfer To: [facility] with [facility] Provider in Charge after Transfer: Destination Specialist Institutional Level of Care: Skilled - Diagnosis (1) Acute on chronic diastolic CHF (congestive heart failure) Status: Acute (2) Acute respiratory failure with hypoxia Status: Acute (3) Atrial fibrillation Status: Acute (4) Pulmonary hypertension Status: Acute (5) Thoracic aortic aneurysm Status: Acute (6) COPD exacerbation Status: Acute (7) Pneumonia Status: Suspected (8) Metabolic encephalopathy Status: Acute (9) CKD (chronic kidney disease) stage 4, GFR 15-29 ml/min Status: Acute (10) Hypertension Status: Chronic (11) Dementia Status: Suspected (12) Counseling regarding goals of care Status: Acute (13) Delirium Status: Acute (14) UTI (urinary tract infection) Status: Acute (15) DVT prophylaxis Status: Acute - Transfer Medications Prescriptions: LORazepam Oral Conc [Ativan Oral Conc] 1 mg PO Q3H PRN 7 Days #30 mls PRN Reason: Anxiety Haloperidol Oral Conc [Haldol] 1 mg PO Q6H #30 mls OXYCODONE Oral CONC [Oxycodone Oral Conc] 10 mg PO Q3H PRN 7 Days #30 oral.syg PRN Reason: pain/dyspnea Home Medications: Acetaminophen [Non-Aspirin] 650 mg PO Q4H PRN 12/06/18 [History] Docusate Sodium [Dok] 100 mg PO BID 12/06/18 [History] Mag Hydrox/Aluminum Hyd/Simeth [Cvs Antacid Plus Anti-Gas Liq] 30 ml PO Q6H PRN 12/06/18 [History] Magnesium Hydroxide [Milk of Magnesia] 30 ml PO DAILY PRN 12/06/18 [History] Ondansetron ODT [Zofran ODT] 4 mg SL Q6HR PRN 12/06/18 [History] Albuterol Neb [Proventil Neb] 2.5 mg IH [id number] PRN inhsol 12/12/18 [Rx] Haloperidol Oral Conc [Haldol] 1 mg PO Q6H #30 mls 12/12/18 [Rx] Ipratropium/Albuterol Neb [Duoneb] 3 ml IH [id number] inhsol 12/12/18 [Rx] LORazepam Oral Conc [Ativan Oral Conc] 1 mg PO Q3H PRN 7 Days #30 mls 12/12/18 [Rx] OXYCODONE Oral CONC [Oxycodone Oral Conc] 10 mg PO Q3H PRN 7 Days #30 oral.syg 12/12/18 [Rx] Allergies/Adverse Reactions: Allergy/AdvReac Type Severity Reaction Status Date / Time No Known Allergies Allergy Verified 12/06/18 14:54 - Respiratory Orders Oxygen / L per min Smoking Cessation: Smoking cessation has been advised. For more information, call the [place] Tobacco Quit Line at 8-275-YWXM-NOW. - Advance Directives Code Status: DNR-Comfort Care - Mobility Orders Bedrest - Rehabiliation Orders Rehab Potential: Poor - Diet Orders Regular CERTIFICATION: I certify that the transfer of the above named patient to an Extended Care Facility is necessary for the continuing treatment of the diagnosis listed. The above information is true and accurate reflection of patient's current condition. Confidential - Redisclosure prohibited without a patient's written consent.
== END 2018-12-12 15:14 | DRG 291 ==
LOC: 3ANU 14:33 → EMEROOARM 14:33 → SUATTDRO 18:28 → 3ANU 19:40 → 2NNU 12-08 19:20 → 2ANU 12-10 15:27
PROVIDERS: ADMIT Internal Medicine Nephrology; ATTEND Internal Medicine